=== PATIENT | female | born 1995 | race Hispanic/Latino ===

== ENCOUNTER 2020-06-04 15:29 | Inpatient (IN) | payer OTHER ==
[2020-06-04] MEDS ORDERED: MAGNESIUM SULFATE 4 GM/100 ML BAG IV ONE ×2 (17:22→19:57)
[2020-06-04] MEDS ORDERED: CALCIUM GLUCONATE 1000 MG/10 ML INJ IV ONE (17:22)
--- NOTE | 2020-06-04 17:22 | History and Physical Report ---
<JAYMIE HUNTER - Last Filed: 06/04/20 19:44> History of Present Illness Date of examination: 06/04/20 (Sent from [facility] d/t BP 200/100) Date of admission: 06/04/2020 Chief complaint: Blood pressure reading of 200/[address] [facility] office visit today. History of present illness: Pt sent from [facility] office d/t blood pressure reading during visit of 200/100. EDC Confirmation: 07/22/2020 Gestational Age: 8 3/7 weeks Past History : 1 Term Births: 0 Premature Births: 0 Living Children: 0 Para: 0 Mult. Births: 0 Prev : 0 Aborta: 0 Elect. Ab: 0 Spont. Ab: 0 Ectopics: 0 Past Medical History: Reviewed history and no changes required: Negative Past Medical History Past Surgical History: Reviewed history and no changes required: negative Past Medical History Anesthesia Complications: negative Anemia: negative Autoimmune Disorder: negative Bleeding Disorder: negative Blood Transfusions: negative Breast Disease: negative Diabetes: negative Heart Disease: negative Hypertension: negative Hepatitis/Liver Disease: negative Kidney Disease/UTI: negative Neurologic/Epilepsy/Migraines: negative Phlebitis/Varicosities: negative Psychiatric: negative Pulmonary Disease/Asthma: negative Thyroid Disease: negative Hospitalizations: negative Surgery (Non-backend developer): negative Abnormal PAP: negative HEIDI Exposure: negative Infertility: negative Uterine Anomaly: negative Uterine Surgery (not C/S): negative Other Gynecologic Problems: negative Family Hx: DM, HTN, Breast CA Infection History Hx of STD: none HIV Risk Eval: low risk Hepatitis B Risk Eval: low risk Personal hx. of genital herpes: no Partner hx. of genital herpes: no Rash, Viral, or Febrile illness since last LMP? no Varicella/Chicken Pox Status: Previous Disease TB Risk: no Genetic History Congenital Heart Defect: Mom: no Dad: no Mary Disease: Mom: no Dad: no Thalassemia Mom: no Dad: no Neural Tube Defect Mom: no Dad: no Down's Syndrome Mom: no Dad: no Jose-Sachs Mom: no Dad: no Sickle Cell Disease/Trait Mom: no Dad: no Hemophilia Mom: no Dad: no Muscular Dystrophy Mom: no Dad: no Cystic Fibrosis Mom: no Dad: no Jones Chorea Mom: no Dad: no Mental Retardation Mom: no Dad: no Fragile X Mom: no Dad: no Other Genetic/Chromosomal Disorder Mom: no Dad: no Child w/other defect Mom: no Dad: no Enviromental Exposures Xray Exposure: no Medication, drug, or alcohol use since LMP: no Chemical/Other Exposure: no Exposure to Cat Liter: yes Occupational Exposure to Children: none Active Medications (reviewed today): None Current Allergies (reviewed today): No known allergies Past History Past Medical History: no pertinent history Past Surgical History: no surgical history Family/Genetic History: diabetes, hypertension, cancer (Breast ) - Obstetrical History Expected Date of Delivery: 07/22/20 Actual Gestation: 33 Week(s) 1 Day(s) : 1 Para: 0 Hx # Term Pregnancies: 0 Number of Pregnancies: 0 Spontaneous Abortions: 0 Induced : 0 Number of Living Children: 0 Medications and Allergies Allergies Allergy/AdvReac Type Severity Reaction Status Date / Time No Known Allergies Allergy Verified 06/04/20 17:30 Home Medications Medication Instructions Recorded Confirmed Last Taken Type Vit-Fe Fumar-FA [ 1 tab PO DAILY 06/04/20 06/04/20 06/04/20 08:30 History Vitamin] - Physical Exam Breasts: Positive: deferred Cardiovascular: Regular rate Lungs: Positive: Normal air movement Abdomen: Positive: normal appearance, soft Genitourinary (Female): Positive: normal external genitalia, normal perenium Vulva: both: normal Vagina: Positive: normal moisture. Negative: discharge Cervix: Negative: lesion, discharge Uterus: Positive: normal size, normal contour Adnexa: both: normal Anus/Rectum: Positive: normal perianal skin, heme negative. Negative: rectal mass, hemorrhoids Extremities: Deep Tendon Reflex Grade: Normal +2 - Obstetrical FHR: auscultation normal, category 1 Uterine Contraction Monitor Mode: External Uterine Contraction Pattern: Irregular Uterine Tone Measurement Phase: Resting Uterine Contraction Intensity: Mild Results All other labs normal. GBS UNKNOWN HBsAg Screen Negative Negative *1 RPR Non Reactive Non Reactive *2 Rubella Antibodies, IgG 8.95 index Immune >0.99 *3 Non-immune <0.90 Equivocal 0.90 - 0.99 Immune >0.99 ABO Grouping O *4 Rh Factor Positive *5 Antibody Screen Negative Negative *6 Tests: (3) HB Solu + Rflx Fra (970205) Hemoglobin (Hgb) Solubility Negative Negative *32 Tests: (4) Toxoplasma gondii Ab, IgG ([id number]) ! Toxoplasma gondii Ab,IgG <3.0 IU/mL 0.0-7.1 *33 Negative <7.2 Equivocal 7.2 - 8.7 Positive >8.7 Tests: (5) HIV Ag/Ab with Reflex ([id number]) HIV Screen 4th Generation wRfx Non Reactive Non Reactive *34 Tests: (6) Toxoplasma gondii Ab,IgM ([id number]) ! Toxoplasma gondii Ab,IgM <3.0 AU/mL 0.0-7.9 *35 Negative <8.0 Equivocal 8.0 - 9.9 Positive >9.9 Tests: (7) Comment: ([id number]) ! Comment: [facility] *36 It is presumed the patient has not been infected with and is not undergoing an acute infection with Toxoplasma. If symptoms persist, submit a new specimen after three weeks. Tests: (8) HCV Ab w/Rflx to Verification ([id number]) ! HCV Ab <0.1 s/co ratio 0.0-0.9 *37 Tests: (9) Comment: ([id number]) ! Comment: [facility] *38 Non reactive HCV antibody screen is consistent with no HCV infection, unless recent infection is suspected or other evidence exists to indicate HCV infection. Assessment and Plan - Patient Problems (1) Gestational diabetes mellitus (GDM) Current Visit: Yes Status: Acute Qualifiers: Gestational diabetes mellitus control: diet-controlled Trimester: third trimester Qualified Code(s): O24.410 - Gestational diabetes mellitus in , diet controlled (2) 33 weeks gestation of Current Visit: Yes Status: Acute (3) Pre-eclampsia, severe, third trimester Onset Date: ~06/04/20 Current Visit: Yes Status: Acute <MICHAEL PADILLA D - Last Filed: 06/04/20 21:33> Medications and Allergies Active Meds: Active Medications Acetaminophen (Acetaminophen 325 Mg Tab) 1,000 mg PO Q6H PRN PRN Reason: Pain MILD(1-3)/Fever >100.5/ESCOBAR Al Hydrox/Mg Hydrox/Simethicone (Alum-Mag Hydroxide-Simethicone [phone]/5ml Oral Liqd 30 Ml) 30 ml PO Q6H PRN PRN Reason: Indigestion Betamethasone Acet/Betameth SodPhos (Betamet Acet/Betamet Na Ph 6 Mg/Ml Inj 5 Ml Mdv) 12 mg IM Q24H ALPHONSO Stop: 06/05/20 18:01 Last Admin: 06/04/20 18:10 Dose: 12 mg Documented by: Dextrose (Dextrose 50% In Water (25gm) 50 Ml Syringe) 50 ml IV Q30MIN PRN; Protocol PRN Reason: Hypoglycemia Diphenhydramine HCl (Diphenhydramine 25 Mg Cap) 25 mg PO Q6H PRN PRN Reason: Itching Docusate Sodium (Docusate Sodium 100 Mg Cap) 100 mg PO Q12H PRN PRN Reason: Constipation Hydralazine HCl (Hydralazine 20 Mg/1 Ml Inj) 10 mg IV Q30MIN PRN PRN Reason: Hypertension Lactated Ringer's (Lactated Ringers) 1,000 mls @ 125 mls/hr IV DIRECT ALPHONSO Last Admin: 06/04/20 18:41 Dose: 125 mls/hr Documented by: Magnesium Sulfate (Magnesium Sulfate 40gm/1000ml) 40 gm in 1,000 mls @ 50 mls/hr IV DIRECT ALPHONSO Insulin Human Regular (Insulin Regular, Human 100 Units/1 Ml) 0 units SUB-Q Q6H ALPHONSO; Protocol Labetalol HCl (Labetalol 200 Mg Tab) 300 mg PO BID [facility] Last Admin: 06/04/20 18:08 Dose: 300 mg Documented by: Multivitamins/Iron/Calcium ( [id number]-Pp Fumarate-Folic Acid Vit Tab) 1 each PO QDAY [facility] Ondansetron HCl (Ondansetron 4 Mg/2 Ml Inj) 4 mg IV Q6H PRN PRN Reason: Nausea And Vomiting Review of Systems All systems: negative - Vital Signs Vital signs: Vital Signs Pulse BP 86 174/104 06/04/20 17:29 06/04/20 17:29 Temp Pulse Resp BP Pulse Ox 98.4 F 92 H 20 127/71 96 06/04/20 17:31 06/04/20 20:42 06/04/20 17:31 06/04/20 20:40 06/04/20 20:42 - Physical Exam Lungs: Positive: Clear to auscultation Abdomen: Negative: tenderness Extremities: Positive: edema (2+) Deep Tendon Reflex Grade: Normal but brisk +3 Results Result Diagrams: 06/04/20 18:30 06/04/20 18:30 Abnormal lab results 06/04/20 06/04/20 Range/Units 18:30 18:30 WBC 17.4 H (4.5-11.0) K/mm3 RDW 13.0 L (13.2-15.2) % Calcium 8.0 L (8.4-10.2) mg/dL AST 57 H (5-40) units/L Alkaline Phosphatase 170 H (35-129) units/L Total Protein 6.0 L (6.3-8.2) g/dL Albumin 3.0 L (3.9-5) g/dL All other labs normal. Assessment and Plan Per [facility]: * Steroids * Magnesium sulfate * PIH labs: AST 57, other labs normal, will recheck in the AM * Continuous EFM Labetalol 300mg bid started SSI ordered. NICU and AMFM consultations ordered - Patient Problems (1) 33 weeks gestation of Current Visit: Yes Status: Acute (2) Gestational diabetes mellitus (GDM) Current Visit: Yes Status: Acute Qualifiers: Gestational diabetes mellitus control: diet-controlled Trimester: third trimester Qualified Code(s): O24.410 - Gestational diabetes mellitus in , diet controlled (3) Pre-eclampsia, severe, third trimester Onset Date: ~06/04/20 Current Visit: Yes Status: Acute
[2020-06-04] MEDS ORDERED: ALUM-MAG HYDROXIDE-SIMETHICONE 200-200-20MG/5ML ORAL LIQD 30 ML PO PRN (17:27)
[2020-06-04] MEDS ORDERED: diphenhydrAMINE 25 MG CAP PO PRN (17:27)
[2020-06-04] MEDS ORDERED: ACETAMINOPHEN 325 MG TAB PO PRN (17:27)
[2020-06-04] MEDS ORDERED: DOCUSATE SODIUM 100 MG CAP PO PRN (17:27)
[2020-06-04] MEDS ORDERED: ONDANSETRON 4 MG/2 ML INJ IV PRN (17:27)
[2020-06-04] MEDS ORDERED: hydrALAZINE 20 MG/1 ML INJ IV ONE (17:35)
[2020-06-04] MEDS ORDERED: MAGNESIUM SULFATE 40GM/1000ML 40 GM/1,000 ML BAG IV SCH (18:00)
[2020-06-04] MEDS: BETAMET ACET/BETAMET NA PH 6 MG/ML INJ 5 ML MDV IM SCH (18:10)
[2020-06-04] MEDS: LACTATED RINGERS 1,000 ML IV SCH (18:41)
[2020-06-04 19:51] LABS: Alanine Aminotransferase 41 units/L (7-56); Blood Urea Nitrogen 14 mg/dL (7-17); Hematocrit 36.2 % (30.3-42.9); Hemoglobin 12.3 gm/dl (10.1-14.3); Hemolysis Index 8; Mean Corpuscular HGB Conc 34 % (30-34); Mean Corpuscular Volume 88 fl (79-97); Platelet Count 149 K/mm3 (140-440)
[2020-06-04 19:55] LABS: BUN/Creatinine Ratio 23
[2020-06-04] MEDS ORDERED: DEXTROSE 50% IN WATER (25GM) 50 ML SYRINGE IV PRN (20:33)
[2020-06-04] MEDS ORDERED: INSULIN REGULAR, HUMAN 100 UNITS/1 ML SUB-Q SCH (21:00)
--- NOTE | 2020-06-04 21:25 | Consultation ---
Consult Note - Parent Education I met with parent(s) and discussed the following:: Need for NICU admission, Poss ible need for intubation and surfactant or other resp support, Temperature regulation, Possible need for IV fluids/TPN and IV antibiotics, Possible need for umbilical lines, Importance of providing breast milk & encouraged pumping aft delivery, Slow feeding advancement and monitoring of tolerance. NG/OG feeds, Need to monitor for jaundice Parent(s) demonstrated understanding of all the information:: Yes Additional Comment: Both parents at bedside, all questions answered and verbalized understanding Assessment and Plan - Assessment Gestation:: 33 Baby's gender: Male Additional Comment: 25 yo mother who presented with elevated BP at [facility]. HIV neg, Hep B neg, rubella immune, toxo IgG and IgM negative, RPR NR, GDM. - Plan Plan: Agree with Mag & steroids Will attend delivery Please call NICU with questions
[2020-06-04 22:52] LABS: Bilirubin,Urine NEG (Negative); Blood,Urine NEG (Negative); Color,Urine Yellow (Yellow); Mucus,Urine FEW /HPF; Protein,Urine >500 mg/dL (Negative); RBC,Urine < 1.0 /HPF (0.0-6.0); Urobilinogen,Urine < 2.0 mg/dL (<2.0)
[2020-06-04 22:56] LABS: Amphetamine Screen,Urine PRESUMPTIVE NEGATIVE; Benzodiazepines Screen,Urine PRESUMPTIVE NEGATIVE; Cannabinoid Screen,Urine PRESUMPTIVE NEGATIVE; Cocaine Screen,Urine PRESUMPTIVE NEGATIVE; Methadone Screen,Urine PRESUMPTIVE NEGATIVE; Opiate Screen,Urine PRESUMPTIVE NEGATIVE
--- NOTE | 2020-06-05 07:18 | Progress Note ---
Assessment and Plan Per [facility]: * Steroids (second dose due today @ 1810) * Magnesium sulfate 2g/hr w/mag level q6hr * PIH labs: AST 57, other labs normal, will recheck in this AM * 24h urine in progress * Continuous EFM Labetalol 300mg bid SSI ordered. AMFM consultations ordered NICU consult completed - Patient Problems (1) 33 weeks gestation of Current Visit: Yes Status: Acute (2) Gestational diabetes mellitus (GDM) Current Visit: Yes Status: Acute Qualifiers: Gestational diabetes mellitus control: diet-controlled Trimester: third trimester Qualified Code(s): O24.410 - Gestational diabetes mellitus in , diet controlled (3) Pre-eclampsia, severe, third trimester Onset Date: ~06/04/20 Current Visit: Yes Status: Acute Subjective - Subjective Date of service: 06/05/20 Principal diagnosis: IUP @ 33+3; severe pre-e Patient reports: movement normal, no new complaints (denies ESCOBAR, visual changes or epigastric pain), no loss of fluid, no vaginal bleeding, no contractions Objective - Vital Signs Vital Signs: Vital Signs - 12hr 06/04/20 06/04/20 06/04/20 19:18 19:23 19:28 Temperature Pulse Rate 92 H 87 91 H Respiratory Rate Blood Pressure 143/87 O2 Sat by Pulse 97 97 97 Oximetry 06/04/20 06/04/20 06/04/20 19:52 19:57 19:58 Temperature Pulse Rate 95 H 92 H 94 H Respiratory Rate Blood Pressure O2 Sat by Pulse 96 96 94 Oximetry 06/04/20 06/04/20 06/04/20 20:00 20:02 20:06 Temperature 98.4 F Pulse Rate 95 H 90 Respiratory Rate Blood Pressure O2 Sat by Pulse 94 94 Oximetry 06/04/20 06/04/20 06/04/20 20:07 20:12 20:16 Temperature Pulse Rate 92 H 90 91 H Respiratory Rate Blood Pressure 141/83 O2 Sat by Pulse 94 97 Oximetry 06/04/20 06/04/20 06/04/20 20:17 20:20 20:22 Temperature Pulse Rate 95 H 90 96 H Respiratory Rate Blood Pressure 138/82 O2 Sat by Pulse 96 96 Oximetry 06/04/20 06/04/20 06/04/20 20:25 20:27 20:30 Temperature Pulse Rate 99 H 102 H 90 Respiratory 18 Rate Blood Pressure 151/82 134/76 O2 Sat by Pulse 96 98 Oximetry 06/04/20 06/04/20 06/04/20 20:32 20:35 20:37 Temperature Pulse Rate 93 H 86 89 Respiratory Rate Blood Pressure 128/71 O2 Sat by Pulse 96 96 Oximetry 06/04/20 06/04/20 06/04/20 20:40 20:42 20:45 Temperature Pulse Rate 87 92 H 87 Respiratory Rate Blood Pressure 127/71 126/70 O2 Sat by Pulse 96 Oximetry 06/04/20 06/04/20 06/04/20 20:47 20:51 20:52 Temperature Pulse Rate 94 H 90 97 H Respiratory Rate Blood Pressure 143/84 O2 Sat by Pulse 96 96 Oximetry 06/04/20 06/04/20 06/04/20 20:55 20:57 21:00 Temperature Pulse Rate 91 H 97 H 90 Respiratory Rate Blood Pressure 138/82 139/82 O2 Sat by Pulse 96 Oximetry 06/04/20 06/04/20 06/04/20 21:02 21:07 21:12 Temperature Pulse Rate 91 H 92 H 104 H Respiratory Rate Blood Pressure 128/77 O2 Sat by Pulse 96 96 96 Oximetry 06/04/20 06/04/20 06/04/20 21:17 21:22 21:27 Temperature Pulse Rate 92 H 90 93 H Respiratory Rate Blood Pressure O2 Sat by Pulse 96 96 96 Oximetry 06/04/20 06/04/20 06/04/20 21:30 21:32 21:37 Temperature Pulse Rate 92 H 94 H Respiratory 18 Rate Blood Pressure O2 Sat by Pulse 97 96 96 Oximetry 06/04/20 06/04/20 06/04/20 21:42 21:47 21:52 Temperature Pulse Rate 94 H 93 H 97 H Respiratory Rate Blood Pressure O2 Sat by Pulse 96 96 96 Oximetry 06/04/20 06/04/20 06/04/20 21:57 22:02 22:07 Temperature Pulse Rate 93 H 90 88 Respiratory Rate Blood Pressure O2 Sat by Pulse 96 96 96 Oximetry 06/04/20 06/04/20 06/04/20 22:09 22:12 22:17 Temperature Pulse Rate 79 91 H 76 Respiratory Rate Blood Pressure 118/68 O2 Sat by Pulse 96 96 Oximetry 06/04/20 06/04/20 06/04/20 22:22 22:25 22:27 Temperature Pulse Rate 79 81 Respiratory 18 Rate Blood Pressure O2 Sat by Pulse 96 98 96 Oximetry 06/04/20 06/04/20 06/04/20 22:32 22:37 22:42 Temperature Pulse Rate 80 87 76 Respiratory Rate Blood Pressure O2 Sat by Pulse 95 96 96 Oximetry 06/04/20 06/04/20 06/04/20 22:47 22:52 22:57 Temperature Pulse Rate 83 83 83 Respiratory Rate Blood Pressure O2 Sat by Pulse 96 96 96 Oximetry 06/04/20 06/04/20 06/04/20 23:02 23:07 23:10 Temperature Pulse Rate 84 81 77 Respiratory Rate Blood Pressure 116/68 O2 Sat by Pulse 96 96 Oximetry 06/04/20 06/04/20 06/04/20 23:12 23:17 23:22 Temperature Pulse Rate 79 78 85 Respiratory 20 Rate Blood Pressure O2 Sat by Pulse 96 96 96 Oximetry 06/04/20 06/04/20 06/04/20 23:27 23:32 23:37 Temperature Pulse Rate 78 78 79 Respiratory Rate Blood Pressure O2 Sat by Pulse 96 95 96 Oximetry 06/04/20 06/04/20 06/04/20 23:42 23:47 23:52 Temperature Pulse Rate 81 79 77 Respiratory Rate Blood Pressure O2 Sat by Pulse 96 96 96 Oximetry 06/04/20 06/05/20 06/05/20 23:57 00:02 00:07 Temperature Pulse Rate 81 77 76 Respiratory Rate Blood Pressure O2 Sat by Pulse 96 95 95 Oximetry 06/05/20 06/05/20 06/05/20 00:11 00:12 00:17 Temperature Pulse Rate 83 89 83 Respiratory Rate Blood Pressure 127/77 O2 Sat by Pulse 96 96 Oximetry 06/05/20 06/05/20 06/05/20 00:22 00:27 00:30 Temperature 98.5 F Pulse Rate 79 77 Respiratory 18 Rate Blood Pressure O2 Sat by Pulse 97 97 97 Oximetry 06/05/20 06/05/20 06/05/20 00:32 00:37 00:42 Temperature Pulse Rate 76 74 76 Respiratory Rate Blood Pressure O2 Sat by Pulse 97 96 96 Oximetry 06/05/20 06/05/20 06/05/20 00:47 00:52 00:57 Temperature Pulse Rate 77 76 80 Respiratory Rate Blood Pressure O2 Sat by Pulse 96 96 96 Oximetry 06/05/20 06/05/20 06/05/20 01:02 01:07 01:09 Temperature Pulse Rate 87 75 73 Respiratory Rate Blood Pressure 120/76 O2 Sat by Pulse 97 96 Oximetry 06/05/20 06/05/20 06/05/20 01:12 01:17 01:22 Temperature Pulse Rate 73 75 84 Respiratory Rate Blood Pressure O2 Sat by Pulse 97 97 97 Oximetry 06/05/20 06/05/20 06/05/20 01:27 01:32 01:35 Temperature Pulse Rate 75 78 Respiratory 20 Rate Blood Pressure O2 Sat by Pulse 97 97 97 Oximetry 06/05/20 06/05/20 06/05/20 01:37 01:42 01:47 Temperature Pulse Rate 75 73 76 Respiratory Rate Blood Pressure O2 Sat by Pulse 97 97 96 Oximetry 06/05/20 06/05/20 06/05/20 01:52 01:57 02:02 Temperature Pulse Rate 72 75 77 Respiratory Rate Blood Pressure O2 Sat by Pulse 96 96 96 Oximetry 06/05/20 06/05/20 06/05/20 02:07 02:09 02:12 Temperature Pulse Rate 76 76 73 Respiratory Rate Blood Pressure 117/73 O2 Sat by Pulse 96 96 Oximetry 06/05/20 06/05/20 06/05/20 02:17 02:22 02:25 Temperature Pulse Rate 77 74 Respiratory 20 Rate Blood Pressure O2 Sat by Pulse 96 96 98 Oximetry 06/05/20 06/05/20 06/05/20 02:27 02:32 02:37 Temperature Pulse Rate 73 75 78 Respiratory Rate Blood Pressure O2 Sat by Pulse 96 96 96 Oximetry 06/05/20 06/05/20 06/05/20 02:42 02:47 02:52 Temperature Pulse Rate 90 72 73 Respiratory Rate Blood Pressure O2 Sat by Pulse 96 96 96 Oximetry 06/05/20 06/05/20 06/05/20 02:57 03:02 03:07 Temperature Pulse Rate 73 75 78 Respiratory Rate Blood Pressure O2 Sat by Pulse 96 96 95 Oximetry 06/05/20 06/05/20 06/05/20 03:10 03:12 03:17 Temperature Pulse Rate 95 H 72 73 Respiratory Rate Blood Pressure 128/73 O2 Sat by Pulse 97 96 Oximetry 06/05/20 06/05/2021 03:22 03:27 03:30 Temperature Pulse Rate 75 71 Respiratory 18 Rate Blood Pressure O2 Sat by Pulse 95 96 97 Oximetry 06/05/20 06/05/20 06/05/20 03:32 03:37 03:42 Temperature Pulse Rate 71 73 74 Respiratory Rate Blood Pressure O2 Sat by Pulse 96 96 95 Oximetry 06/05/20 06/05/20 06/05/20 03:47 03:52 03:57 Temperature Pulse Rate 78 72 73 Respiratory Rate Blood Pressure O2 Sat by Pulse 96 96 96 Oximetry 06/05/20 06/05/20 06/05/20 04:02 04:07 04:11 Temperature Pulse Rate 73 74 77 Respiratory Rate Blood Pressure 125/73 O2 Sat by Pulse 96 96 Oximetry 06/05/20 06/05/20 06/05/20 04:12 04:17 04:22 Temperature Pulse Rate 70 73 70 Respiratory Rate Blood Pressure O2 Sat by Pulse 96 96 96 Oximetry 06/05/20 06/05/20 06/05/20 04:27 04:32 04:37 Temperature Pulse Rate 72 72 72 Respiratory Rate Blood Pressure O2 Sat by Pulse 96 96 96 Oximetry 06/05/20 06/05/20 06/05/20 04:40 04:42 04:47 Temperature Pulse Rate 72 70 Respiratory 18 Rate Blood Pressure O2 Sat by Pulse 97 96 96 Oximetry 06/05/20 06/05/20 06/05/20 04:52 04:57 05:02 Temperature Pulse Rate 71 74 79 Respiratory Rate Blood Pressure O2 Sat by Pulse 96 96 96 Oximetry 06/05/20 06/05/20 06/05/20 05:03 05:07 05:10 Temperature Pulse Rate 81 79 95 H Respiratory Rate Blood Pressure 127/72 O2 Sat by Pulse 94 95 Oximetry 06/05/20 06/05/20 06/05/20 05:12 05:17 05:22 Temperature Pulse Rate 77 85 74 Respiratory Rate Blood Pressure O2 Sat by Pulse 97 96 96 Oximetry 06/05/20 06/05/20 06/05/20 05:27 05:30 05:32 Temperature Pulse Rate 82 73 Respiratory 18 Rate Blood Pressure O2 Sat by Pulse 97 96 97 Oximetry 06/05/20 06/05/20 06/05/20 05:37 05:42 05:47 Temperature Pulse Rate 75 85 85 Respiratory Rate Blood Pressure O2 Sat by Pulse 97 97 97 Oximetry 06/05/20 06/05/20 06/05/20 05:52 05:57 06:02 Temperature Pulse Rate 76 76 81 Respiratory Rate Blood Pressure O2 Sat by Pulse 97 97 98 Oximetry 06/05/20 06/05/20 06/05/20 06:07 06:09 06:12 Temperature Pulse Rate 82 75 76 Respiratory Rate Blood Pressure 124/75 O2 Sat by Pulse 97 97 Oximetry 06/05/20 06/05/20 06/05/20 06:17 06:22 06:27 Temperature Pulse Rate 78 80 77 Respiratory Rate Blood Pressure O2 Sat by Pulse 97 98 97 Oximetry 06/05/20 06/05/20 06/05/20 06:32 06:37 06:42 Temperature Pulse Rate 80 80 77 Respiratory Rate Blood Pressure O2 Sat by Pulse 98 97 97 Oximetry 06/05/20 06/05/20 06/05/20 06:45 06:47 06:52 Temperature Pulse Rate 78 83 Respiratory 18 Rate Blood Pressure O2 Sat by Pulse 96 96 97 Oximetry 06/05/20 06/05/20 06/05/20 06:54 06:57 07:02 Temperature 98.0 F Pulse Rate 90 86 Respiratory Rate Blood Pressure O2 Sat by Pulse 97 97 Oximetry 06/05/20 06/05/20 06/05/20 07:07 07:09 07:12 Temperature Pulse Rate 89 77 79 Respiratory Rate Blood Pressure 131/80 O2 Sat by Pulse 97 98 Oximetry - Exam Breasts: normal Cardiovascular: Regular rate Lungs: Normal air movement Abdomen: Present: normal appearance, soft Uterus: Present: normal, fundal height above umbilicus FHR: category 1 Uterine Contraction Monitor Mode: External Uterine Contraction Pattern: Absent Uterine Tone Measurement Phase: Resting Extremities: edema (1+ non pitting) Deep Tendon Reflex Grade: Normal +2 - Labs Labs: Abnormal Labs 06/04/20 06/04/20 06/05/20 18:30 18:30 00:59 WBC 17.4 H RDW 13.0 L Calcium 8.0 L Magnesium 5.90 H AST 57 H Alkaline Phosphatase 170 H Total Protein 6.0 L Albumin 3.0 L Laboratory Results - last 24 hr 06/04/20 06/04/20 06/04/20 18:30 18:30 18:30 WBC 17.4 H RBC 4.10 Hgb 12.3 Hct 36.2 MCV 88 MCH 30 MCHC 34 RDW 13.0 L Plt Count 149 Sodium 139 Potassium 3.9 Chloride 105.4 Carbon Dioxide 23 Anion Gap 15 BUN 14 Creatinine 0.6 Estimated GFR > 60 BUN/Creatinine Ratio 23 Glucose 72 POC Glucose Uric Acid 7.0 Calcium 8.0 L Magnesium 1.70 Total Bilirubin 0.30 AST 57 H ALT 41 Alkaline Phosphatase 170 H Total Protein 6.0 L Albumin 3.0 L Albumin/Globulin Ratio 1.0 Urine Color Urine Turbidity Urine pH Ur Specific [place] Urine Protein Urine Glucose (UA) Urine Ketones Urine Blood Urine Nitrite Urine Bilirubin Urine Urobilinogen Ur Leukocyte Esterase Urine WBC (Auto) Urine RBC (Auto) U Epithel Cells (Auto) Urine Mucus Urine Opiates Screen Urine Methadone Screen Ur Barbiturates Screen Ur Phencyclidine Scrn Ur Amphetamines Screen U Benzodiazepines Scrn Urine Cocaine Screen U Marijuana (THC) Screen Drugs of Abuse Note Syphilis IgG Antibody Blood Type Antibody Screen 06/04/20 06/04/20 06/04/20 18:30 18:30 21:19 WBC RBC Hgb Hct MCV MCH MCHC RDW Plt Count Sodium Potassium Chloride Carbon Dioxide Anion Gap BUN Creatinine Estimated GFR BUN/Creatinine Ratio Glucose POC Glucose 92 Uric Acid Calcium Magnesium Total Bilirubin AST ALT Alkaline Phosphatase Total Protein Albumin Albumin/Globulin Ratio Urine Color Urine Turbidity Urine pH Ur Specific [place] Urine Protein Urine Glucose (UA) Urine Ketones Urine Blood Urine Nitrite Urine Bilirubin Urine Urobilinogen Ur Leukocyte Esterase Urine WBC (Auto) Urine RBC (Auto) U Epithel Cells (Auto) Urine Mucus Urine Opiates Screen Urine Methadone Screen Ur Barbiturates Screen Ur Phencyclidine Scrn Ur Amphetamines Screen U Benzodiazepines Scrn Urine Cocaine Screen U Marijuana (THC) Screen Drugs of Abuse Note Syphilis IgG Antibody Nonreactive Blood Type O POSITIVE Antibody Screen Negative 06/04/20 06/04/20 06/05/20 22:00 22:00 00:59 WBC RBC Hgb Hct MCV MCH MCHC RDW Plt Count Sodium Potassium Chloride Carbon Dioxide Anion Gap BUN Creatinine Estimated GFR BUN/Creatinine Ratio Glucose POC Glucose Uric Acid Calcium Magnesium 5.90 H Total Bilirubin AST ALT Alkaline Phosphatase Total Protein Albumin Albumin/Globulin Ratio Urine Color Yellow Urine Turbidity Slightly-cloudy Urine pH 6.0 Ur Specific [place] 1.015 Urine Protein >500 Urine Glucose (UA) Neg Urine Ketones Neg Urine Blood Neg Urine Nitrite Neg Urine Bilirubin Neg Urine Urobilinogen < 2.0 Ur Leukocyte Esterase Neg Urine WBC (Auto) 3.0 Urine RBC (Auto) < 1.0 U Epithel Cells (Auto) < 1.0 Urine Mucus Few Urine Opiates Screen Presumptive negative Urine Methadone Screen Presumptive negative Ur Barbiturates Screen Presumptive negative Ur Phencyclidine Scrn Presumptive negative Ur Amphetamines Screen Presumptive negative U Benzodiazepines Scrn Presumptive negative Urine Cocaine Screen Presumptive negative U Marijuana (THC) Screen Presumptive negative Drugs of Abuse Note Disclamer Syphilis IgG Antibody Blood Type Antibody Screen
[2020-06-05 08:52] LABS: Hematocrit 37.7 % (30.3-42.9); Hemoglobin 12.6 gm/dl (10.1-14.3); Mean Corpuscular HGB Conc 34 % (30-34); Mean Corpuscular Volume 89 fl (79-97); Platelet Count 138 K/mm3 (140-440); Red Blood Count 4.24 M/mm3 (3.65-5.03); Red Cell Distribution Width 13.3 % (13.2-15.2)
[2020-06-05] MEDS: PRENATAL VIT27-FE FUMARATE-FOLIC ACID VIT TAB PO SCH (09:04)
[2020-06-05 09:24] LABS: Alanine Aminotransferase 46 units/L (7-56); Uric Acid 7.8 mg/dL (3.5-7.6)
--- NOTE | 2020-06-05 11:25 | Ultrasound Report ---
ULTRASOUND OBSTETRIC INDICATION / CLINICAL INFORMATION: evaluate for IUGR. Clinical Gestational Age (GA): TECHNIQUE: Transabdominal. COMPARISON: 12/24/2019 FINDINGS: There is a single intrauterine . Biparietal Diameter = 8.2 cm = 32 weeks, 6 day(s). Head Circumference = 29.8 cm = 33 weeks, 0 day(s). Abdominal Circumference = 28.5 cm = 32 weeks, 4 day(s). Femur Length = 5.8 cm = 30 weeks, 2 day(s). Average Ultrasound Age (AUA) = 32 weeks, 1 day(s). Heart Rate: 121 beats per minute. Estimated Weight in grams (if calculated): 1865 g Estimated Weight Growth Percentile (if calculated): Amniotic Fluid Volume: normal Amniotic Fluid Index (RUY) in cm (if calculated): 9.8. Maternal Adnexa: No significant abnormality. IMPRESSION: 1. Single, living intrauterine with estimated sonographic age of 32 weeks, 1 day(s), this lags clinical dates by 1 week. Signer Name: Mumtaz Wisdom MD Signed: 06/05/2020 11:20 AM Workstation Name: [id number]
[2020-06-05] MEDS ORDERED: MAGNESIUM SULFATE 40GM/1000ML 40 GM/1,000 ML BAG IV SCH (14:00)
--- NOTE | 2020-06-05 18:12 | Consultation ---
Past History Past Medical History: no pertinent history Past Surgical History: no surgical history Family/Genetic History: diabetes, hypertension, cancer (Breast ) - Obstetrical History : 1 Medications and Allergies Allergies Allergy/AdvReac Type Severity Reaction Status Date / Time No Known Allergies Allergy Verified 06/04/20 17:30 Home Medications Medication Instructions Recorded Confirmed Last Taken Type Vit-Fe Fumar-FA [ 1 tab PO DAILY 06/04/20 06/04/20 06/04/20 08:30 History Vitamin] Active Meds: Active Medications Acetaminophen (Acetaminophen 325 Mg Tab) 1,000 mg PO Q6H PRN PRN Reason: Pain MILD(1-3)/Fever >100.5/ESCOBAR Al Hydrox/Mg Hydrox/Simethicone (Alum-Mag Hydroxide-Simethicone [id number]/5ml Oral Liqd 30 Ml) 30 ml PO Q6H PRN PRN Reason: Indigestion Dextrose (Dextrose 50% In Water (25gm) 50 Ml Syringe) 50 ml IV Q30MIN PRN; Protocol PRN Reason: Hypoglycemia Diphenhydramine HCl (Diphenhydramine 25 Mg Cap) 25 mg PO Q6H PRN PRN Reason: Itching Docusate Sodium (Docusate Sodium 100 Mg Cap) 100 mg PO Q12H PRN PRN Reason: Constipation Hydralazine HCl (Hydralazine 20 Mg/1 Ml Inj) 10 mg IV Q30MIN PRN PRN Reason: Hypertension Lactated Ringer's (Lactated Ringers) 1,000 mls @ 125 mls/hr IV DIRECT ALPHONSO Last Admin: 06/04/20 18:41 Dose: 125 mls/hr Documented by: Magnesium Sulfate (Magnesium Sulfate 40gm/1000ml) 40 gm in 1,000 mls @ 25 mls/hr IV DIRECT ALPHONSO Insulin Human Regular (Insulin Regular, Human 100 Units/1 Ml) 0 units SUB-Q Q6H ALPHONSO; Protocol Labetalol HCl (Labetalol 200 Mg Tab) 200 mg PO Q12H ALPHONSO Last Admin: 06/05/20 09:04 Dose: 200 mg Documented by: Labetalol HCl (Labetalol 100 Mg Tab) 100 mg PO Q12H ALPHONSO Last Admin: 06/05/20 09:03 Dose: 100 mg Documented by: Multivitamins/Iron/Calcium ( [id number] Fumarate-Folic Acid Vit Tab) 1 each PO QDAY ALPHONSO Last Admin: 06/05/20 09:04 Dose: 1 each Documented by: Ondansetron HCl (Ondansetron 4 Mg/2 Ml Inj) 4 mg IV Q6H PRN PRN Reason: Nausea And Vomiting - Vital Signs Vital signs: Vital Signs Pulse BP 86 174/104 06/04/20 17:29 06/04/20 17:29 Temp Pulse Resp BP Pulse Ox 97.8 F 75 16 125/80 97 06/05/20 15:11 06/05/20 18:09 06/05/20 08:41 06/05/20 18:09 06/05/20 18:06 Results Result Diagrams: 06/05/20 07:44 06/05/20 07:44 Abnormal lab results 06/04/20 06/04/20 06/05/20 Range/Units 18:30 18:30 00:59 WBC 17.4 H (4.5-11.0) K/mm3 RDW 13.0 L (13.2-15.2) % Plt Count (140-440) K/mm3 POC Glucose (70-105) mg/dL Uric Acid (3.5-7.6) mg/dL Calcium 8.0 L (8.4-10.2) mg/dL Magnesium 5.90 H (1.7-2.3) mg/dL AST 57 H (5-40) units/L Alkaline Phosphatase 170 H (35-129) units/L Lactate Dehydrogenase (91-180) units/L Total Protein 6.0 L (6.3-8.2) g/dL Albumin 3.0 L (3.9-5) g/dL 06/05/20 06/05/20 06/05/20 Range/Units 06:58 07:44 07:44 WBC 14.6 H (4.5-11.0) K/mm3 RDW (13.2-15.2) % Plt Count 138 L (140-440) K/mm3 POC Glucose 113 H (70-105) mg/dL Uric Acid 7.8 H (3.5-7.6) mg/dL Calcium (8.4-10.2) mg/dL Magnesium 7.30 H (1.7-2.3) mg/dL AST 49 H (5-40) units/L Alkaline Phosphatase (35-129) units/L Lactate Dehydrogenase 289 H (91-180) units/L Total Protein (6.3-8.2) g/dL Albumin (3.9-5) g/dL 06/05/20 Range/Units 12:19 WBC (4.5-11.0) K/mm3 RDW (13.2-15.2) % Plt Count (140-440) K/mm3 POC Glucose (70-105) mg/dL Uric Acid (3.5-7.6) mg/dL Calcium (8.4-10.2) mg/dL Magnesium 7.00 H (1.7-2.3) mg/dL AST (5-40) units/L Alkaline Phosphatase (35-129) units/L Lactate Dehydrogenase (91-180) units/L Total Protein (6.3-8.2) g/dL Albumin (3.9-5) g/dL All other labs normal. Assessment and Plan [facility] Consult performed Will fax to unit
[2020-06-05] MEDS: BETAMET ACET/BETAMET NA PH 6 MG/ML INJ 5 ML MDV IM SCH (18:16)
[2020-06-05 23:17] LABS: Creatinine,Urine 21.3 mg/dL (0.1-20.0); Creatinine,Urine 21.4 mg/dL (0.1-20.0)
[2020-06-06] MEDS: LACTATED RINGERS 1,000 ML IV SCH ×2 (04:24→13:45)
--- NOTE | 2020-06-06 05:53 | Progress Note ---
Assessment and Plan Pt in good spirits this AM. Denies any s/sx of worsening PreE. Will consult with Dr Geronimo. [facility] recommendations: BMZ completed X 2 doses. cont. Labetalol 300mg BID CBC/CMP today monitor for HELLP BPP twice weekly; ordered for 06/07/20 Cont. BS fasting and 2hrPP; SSI if indicated D/C MGSO4 if stable BPs Delivery @ 34w unless worsening s/sx - Patient Problems (1) 33 weeks gestation of Onset Date: ~06/06/20 Current Visit: Yes Status: Acute Plan to address problem: BMZ completed 06-05-20@ 1800 X 2 doses BPP/RUY ordered for 06/07/20 (2) Gestational diabetes mellitus (GDM) Onset Date: ~06/06/20 Current Visit: Yes Status: Acute Qualifiers: Gestational diabetes mellitus control: diet-controlled Trimester: third trimester Qualified Code(s): O24.410 - Gestational diabetes mellitus in , diet controlled Plan to address problem: fasting and 2hr PP BS; SSI to cover; anticipate elevated BS due to steroids (3) Pre-eclampsia, severe, third trimester Onset Date: ~06/06/20 Current Visit: Yes Status: Acute Plan to address problem: CBC/CMP ordered for today to monitor for worsening s/sx of PreE/HELLP Subjective - Subjective Date of service: 06/06/20 (No c/o voiced) Principal diagnosis: IUP @ 33w3d; severe pre-e; GDM diet controlled Patient reports: movement normal, no new complaints (denies ESCOBAR, visual changes or epigastric pain), no loss of fluid, no vaginal bleeding, no contractions Objective - Vital Signs Vital Signs: Vital Signs - 12hr 06/05/20 06/05/20 06/05/20 17:57 18:02 18:06 Temperature Pulse Rate 81 83 87 Respiratory Rate Blood Pressure Blood Pressure [Left] O2 Sat by Pulse 96 96 97 Oximetry 06/05/20 06/05/20 06/05/20 18:09 18:12 18:17 Temperature Pulse Rate 75 77 84 Respiratory Rate Blood Pressure 125/80 Blood Pressure [Left] O2 Sat by Pulse 96 96 Oximetry 06/05/20 06/05/20 06/05/20 18:21 18:26 18:31 Temperature Pulse Rate 73 77 81 Respiratory Rate Blood Pressure Blood Pressure [Left] O2 Sat by Pulse 96 97 97 Oximetry 06/05/20 06/05/20 06/05/20 18:37 18:41 18:46 Temperature Pulse Rate 81 80 82 Respiratory Rate Blood Pressure Blood Pressure [Left] O2 Sat by Pulse 97 97 96 Oximetry 06/05/20 06/05/20 06/05/20 18:51 18:56 19:01 Temperature Pulse Rate 76 79 79 Respiratory Rate Blood Pressure Blood Pressure [Left] O2 Sat by Pulse 97 97 97 Oximetry 06/05/20 06/05/20 06/05/20 19:07 19:09 19:12 Temperature Pulse Rate 81 83 84 Respiratory Rate Blood Pressure 138/77 Blood Pressure [Left] O2 Sat by Pulse 96 97 Oximetry 06/05/20 06/05/20 06/05/20 19:16 19:21 19:26 Temperature Pulse Rate 81 81 80 Respiratory Rate Blood Pressure Blood Pressure [Left] O2 Sat by Pulse 97 97 96 Oximetry 06/05/20 06/05/20 06/05/20 19:31 19:37 19:41 Temperature Pulse Rate 80 79 77 Respiratory Rate Blood Pressure Blood Pressure [Left] O2 Sat by Pulse 96 96 96 Oximetry 06/05/20 06/05/20 06/05/20 19:46 19:51 19:56 Temperature Pulse Rate 87 83 86 Respiratory Rate Blood Pressure Blood Pressure [Left] O2 Sat by Pulse 96 96 96 Oximetry 06/05/20 06/05/20 06/05/20 20:01 20:06 20:10 Temperature 98.3 F Pulse Rate 74 82 77 Respiratory 18 Rate Blood Pressure 139/76 Blood Pressure 139/76 [Left] O2 Sat by Pulse 96 96 96 Oximetry 06/05/20 06/05/20 06/05/20 20:11 20:16 20:21 Temperature Pulse Rate 78 90 83 Respiratory Rate Blood Pressure Blood Pressure [Left] O2 Sat by Pulse 96 97 97 Oximetry 06/05/20 06/05/20 06/05/20 20:26 20:31 20:36 Temperature Pulse Rate 82 81 78 Respiratory Rate Blood Pressure Blood Pressure [Left] O2 Sat by Pulse 98 97 96 Oximetry 06/05/20 06/05/20 06/05/20 20:41 20:46 20:51 Temperature Pulse Rate 75 77 79 Respiratory Rate Blood Pressure Blood Pressure [Left] O2 Sat by Pulse 96 96 96 Oximetry 06/05/20 06/05/20 06/05/20 20:56 21:01 21:06 Temperature Pulse Rate 76 87 78 Respiratory Rate Blood Pressure Blood Pressure [Left] O2 Sat by Pulse 96 97 96 Oximetry 06/05/20 06/05/20 06/05/20 21:09 21:11 21:16 Temperature Pulse Rate 83 79 79 Respiratory Rate Blood Pressure 134/74 Blood Pressure [Left] O2 Sat by Pulse 96 96 Oximetry 06/05/20 06/05/20 06/05/20 21:21 21:26 21:31 Temperature Pulse Rate 84 76 84 Respiratory Rate Blood Pressure Blood Pressure [Left] O2 Sat by Pulse 97 96 96 Oximetry 06/05/20 06/05/20 06/05/20 21:34 21:35 21:36 Temperature Pulse Rate 78 75 78 Respiratory Rate Blood Pressure 140/84 140/84 140/84 Blood Pressure [Left] O2 Sat by Pulse 97 Oximetry 06/05/20 06/05/20 06/05/20 21:41 21:46 21:51 Temperature Pulse Rate 76 81 72 Respiratory Rate Blood Pressure Blood Pressure [Left] O2 Sat by Pulse 96 97 96 Oximetry 06/05/20 06/05/20 06/05/20 21:56 22:01 22:06 Temperature Pulse Rate 72 74 76 Respiratory Rate Blood Pressure Blood Pressure [Left] O2 Sat by Pulse 96 95 95 Oximetry 06/05/20 06/05/20 06/05/20 22:09 22:11 22:16 Temperature Pulse Rate 74 75 76 Respiratory Rate Blood Pressure 126/74 Blood Pressure [Left] O2 Sat by Pulse 95 95 Oximetry 06/05/20 06/05/20 06/05/20 22:21 22:26 22:31 Temperature Pulse Rate 77 80 78 Respiratory Rate Blood Pressure Blood Pressure [Left] O2 Sat by Pulse 95 97 97 Oximetry 06/05/20 06/05/20 06/05/20 22:36 22:41 22:46 Temperature Pulse Rate 74 76 73 Respiratory Rate Blood Pressure Blood Pressure [Left] O2 Sat by Pulse 96 96 98 Oximetry 06/05/20 06/05/20 06/05/20 22:51 22:56 23:01 Temperature Pulse Rate 73 71 74 Respiratory Rate Blood Pressure Blood Pressure [Left] O2 Sat by Pulse 97 96 96 Oximetry 06/05/20 06/05/20 06/05/20 23:06 23:09 23:11 Temperature Pulse Rate 75 79 77 Respiratory Rate Blood Pressure 142/81 Blood Pressure [Left] O2 Sat by Pulse 96 96 Oximetry 06/05/20 06/05/20 06/05/20 23:16 23:21 23:26 Temperature Pulse Rate 68 75 76 Respiratory Rate Blood Pressure Blood Pressure [Left] O2 Sat by Pulse 97 95 96 Oximetry 06/05/20 06/05/20 06/05/20 23:31 23:36 23:41 Temperature Pulse Rate 75 76 72 Respiratory Rate Blood Pressure Blood Pressure [Left] O2 Sat by Pulse 96 96 97 Oximetry 06/05/20 06/05/20 06/05/20 23:46 23:51 23:56 Temperature Pulse Rate 71 76 75 Respiratory Rate Blood Pressure Blood Pressure [Left] O2 Sat by Pulse 97 96 96 Oximetry 06/06/20 06/06/20 06/06/20 00:01 00:06 00:10 Temperature Pulse Rate 75 78 93 H Respiratory Rate Blood Pressure 145/82 Blood Pressure [Left] O2 Sat by Pulse 96 96 Oximetry 06/06/20 06/06/20 06/06/20 00:11 00:16 00:21 Temperature Pulse Rate 81 74 86 Respiratory Rate Blood Pressure Blood Pressure [Left] O2 Sat by Pulse 96 96 97 Oximetry 06/06/20 06/06/20 06/06/20 00:26 00:31 00:36 Temperature Pulse Rate 90 76 79 Respiratory Rate Blood Pressure Blood Pressure [Left] O2 Sat by Pulse 96 96 97 Oximetry 06/06/20 06/06/20 06/06/20 00:41 00:46 00:51 Temperature Pulse Rate 92 H 84 83 Respiratory Rate Blood Pressure Blood Pressure [Left] O2 Sat by Pulse 97 96 96 Oximetry 06/06/20 06/06/20 06/06/20 00:56 01:01 01:06 Temperature Pulse Rate 82 84 78 Respiratory Rate Blood Pressure Blood Pressure [Left] O2 Sat by Pulse 96 96 96 Oximetry 06/06/20 06/06/20 06/06/20 01:09 01:11 01:16 Temperature Pulse Rate 80 75 84 Respiratory Rate Blood Pressure 122/76 Blood Pressure [Left] O2 Sat by Pulse 96 97 Oximetry 06/06/20 06/06/20 06/06/20 01:21 01:26 01:31 Temperature Pulse Rate 83 84 78 Respiratory Rate Blood Pressure Blood Pressure [Left] O2 Sat by Pulse 96 97 97 Oximetry 06/06/20 06/06/20 06/06/20 01:36 01:41 01:46 Temperature Pulse Rate 87 74 78 Respiratory Rate Blood Pressure Blood Pressure [Left] O2 Sat by Pulse 96 96 96 Oximetry 06/06/20 06/06/20 06/06/20 01:51 01:56 02:01 Temperature Pulse Rate 87 78 85 Respiratory Rate Blood Pressure Blood Pressure [Left] O2 Sat by Pulse 96 96 96 Oximetry 06/06/20 06/06/20 06/06/20 02:06 02:09 02:11 Temperature Pulse Rate 75 88 86 Respiratory Rate Blood Pressure 142/84 Blood Pressure [Left] O2 Sat by Pulse 96 96 Oximetry 06/06/20 06/06/20 06/06/20 02:16 02:27 02:32 Temperature Pulse Rate 90 92 H 85 Respiratory Rate Blood Pressure Blood Pressure [Left] O2 Sat by Pulse 96 97 96 Oximetry 06/06/20 06/06/20 06/06/20 02:37 02:42 02:47 Temperature Pulse Rate 84 81 87 Respiratory Rate Blood Pressure Blood Pressure [Left] O2 Sat by Pulse 96 96 96 Oximetry 06/06/20 06/06/20 06/06/20 02:52 02:57 03:02 Temperature Pulse Rate 86 88 81 Respiratory Rate Blood Pressure Blood Pressure [Left] O2 Sat by Pulse 96 96 96 Oximetry 06/06/20 06/06/20 06/06/20 03:07 03:09 03:12 Temperature Pulse Rate 85 78 74 Respiratory Rate Blood Pressure 135/84 Blood Pressure [Left] O2 Sat by Pulse 96 96 Oximetry 06/06/20 06/06/20 06/06/20 03:17 03:22 03:27 Temperature Pulse Rate 73 81 80 Respiratory Rate Blood Pressure Blood Pressure [Left] O2 Sat by Pulse 96 95 95 Oximetry 06/06/20 06/06/20 06/06/20 03:32 03:37 03:41 Temperature Pulse Rate 79 80 80 Respiratory Rate Blood Pressure Blood Pressure [Left] O2 Sat by Pulse 95 95 94 Oximetry 06/06/20 06/06/20 06/06/20 03:42 03:47 03:52 Temperature Pulse Rate 81 80 81 Respiratory Rate Blood Pressure Blood Pressure [Left] O2 Sat by Pulse 95 94 94 Oximetry 06/06/20 06/06/20 06/06/20 03:54 03:57 04:00 Temperature Pulse Rate 82 76 77 Respiratory Rate Blood Pressure Blood Pressure [Left] O2 Sat by Pulse 94 95 94 Oximetry 06/06/20 06/06/20 06/06/20 04:02 04:05 04:07 Temperature Pulse Rate 78 75 81 Respiratory Rate Blood Pressure Blood Pressure [Left] O2 Sat by Pulse 95 94 94 Oximetry 06/06/20 06/06/20 06/06/20 04:09 04:12 04:17 Temperature Pulse Rate 81 72 79 Respiratory Rate Blood Pressure 116/68 Blood Pressure [Left] O2 Sat by Pulse 95 95 Oximetry 06/06/20 06/06/20 06/06/20 04:20 04:22 04:27 Temperature Pulse Rate 81 85 93 H Respiratory Rate Blood Pressure Blood Pressure [Left] O2 Sat by Pulse 94 95 94 Oximetry 06/06/20 06/06/20 06/06/20 04:32 04:35 04:37 Temperature Pulse Rate 78 81 83 Respiratory Rate Blood Pressure Blood Pressure [Left] O2 Sat by Pulse 95 94 95 Oximetry 06/06/20 06/06/20 06/06/20 04:42 04:43 04:47 Temperature Pulse Rate 83 83 81 Respiratory Rate Blood Pressure Blood Pressure [Left] O2 Sat by Pulse 95 94 95 Oximetry 06/06/20 06/06/20 06/06/20 04:49 04:52 04:56 Temperature Pulse Rate 84 87 83 Respiratory Rate Blood Pressure Blood Pressure [Left] O2 Sat by Pulse 94 95 94 Oximetry 06/06/20 06/06/20 06/06/20 04:57 05:02 05:07 Temperature Pulse Rate 80 83 91 H Respiratory Rate Blood Pressure Blood Pressure [Left] O2 Sat by Pulse 95 95 95 Oximetry 06/06/20 06/06/20 06/06/20 05:10 05:12 05:17 Temperature Pulse Rate 91 H 82 77 Respiratory Rate Blood Pressure 120/68 Blood Pressure [Left] O2 Sat by Pulse 95 95 Oximetry 06/06/20 06/06/20 06/06/20 05:18 05:22 05:27 Temperature Pulse Rate 82 79 78 Respiratory Rate Blood Pressure Blood Pressure [Left] O2 Sat by Pulse 94 95 95 Oximetry 06/06/20 06/06/20 06/06/20 05:32 05:37 05:42 Temperature Pulse Rate 77 74 75 Respiratory Rate Blood Pressure Blood Pressure [Left] O2 Sat by Pulse 95 95 96 Oximetry 06/06/20 05:47 Temperature Pulse Rate 99 H Respiratory Rate Blood Pressure Blood Pressure [Left] O2 Sat by Pulse 96 Oximetry - Exam Breasts: deferred Cardiovascular: Regular rate Lungs: Normal air movement Abdomen: Present: normal appearance, soft. Absent: distention, tenderness Uterus: Present: normal FHR: auscultation normal, category 1 Uterine Contraction Monitor Mode: External Uterine Contraction Pattern: Irregular Uterine Tone Measurement Phase: Resting Uterine Contraction Intensity: Mild Extremities: normal Deep Tendon Reflex Grade: Normal +2 - Labs Labs: Abnormal Labs 06/04/20 06/04/20 06/05/20 18:30 18:30 00:59 WBC 17.4 H RDW 13.0 L Plt Count POC Glucose Uric Acid Calcium 8.0 L Magnesium 5.90 H AST 57 H Alkaline Phosphatase 170 H Lactate Dehydrogenase Total Protein 6.0 L Albumin 3.0 L Urine Creatinine Ur Total Protein 24 Hr Urine Total Protein 06/05/20 06/05/20 06/05/20 06:58 07:44 07:44 WBC 14.6 H RDW Plt Count 138 L POC Glucose 113 H Uric Acid 7.8 H Calcium Magnesium 7.30 H AST 49 H Alkaline Phosphatase Lactate Dehydrogenase 289 H Total Protein Albumin Urine Creatinine Ur Total Protein 24 Hr Urine Total Protein 06/05/20 06/05/20 06/05/20 11:52 12:19 17:45 WBC RDW Plt Count POC Glucose 106 H Uric Acid Calcium Magnesium 7.00 H 6.30 H AST Alkaline Phosphatase Lactate Dehydrogenase Total Protein Albumin Urine Creatinine Ur Total Protein 24 Hr Urine Total Protein 06/05/20 06/05/20 06/05/20 18:27 22:50 22:50 WBC RDW Plt Count POC Glucose 109 H Uric Acid Calcium Magnesium AST Alkaline Phosphatase Lactate Dehydrogenase Total Protein Albumin Urine Creatinine 21.4 H 21.3 H Ur Total Protein 24 Hr 1406.00 H Urine Total Protein 37 H 06/06/20 00:41 WBC RDW Plt Count POC Glucose 119 H Uric Acid Calcium Magnesium AST Alkaline Phosphatase Lactate Dehydrogenase Total Protein Albumin Urine Creatinine Ur Total Protein 24 Hr Urine Total Protein Laboratory Results - last 24 hr 06/05/20 06/05/20 06/05/20 06:58 07:44 07:44 WBC RBC Hgb Hct MCV MCH MCHC RDW Plt Count Creatinine 0.6 Estimated GFR > 60 POC Glucose 113 H Uric Acid 7.8 H Magnesium 7.30 H AST 49 H ALT 46 Lactate Dehydrogenase 289 H Urine Total Volume Urine Creatinine Height (in) Weight (lb) Creatinine Clearance Ur Total Protein 24 Hr Urine Total Protein Syphilis IgG Antibody Nonreactive Coronavirus (PCR) 06/05/20 06/05/20 06/05/20 07:44 11:52 12:19 WBC 14.6 H RBC 4.24 Hgb 12.6 Hct 37.7 MCV 89 MCH 30 MCHC 34 RDW 13.3 Plt Count 138 L Creatinine Estimated GFR POC Glucose 106 H Uric Acid Magnesium 7.00 H AST ALT Lactate Dehydrogenase Urine Total Volume Urine Creatinine Height (in) Weight (lb) Creatinine Clearance Ur Total Protein 24 Hr Urine Total Protein Syphilis IgG Antibody Coronavirus (PCR) 06/05/20 06/05/20 06/05/20 17:45 18:27 22:50 WBC RBC Hgb Hct MCV MCH MCHC RDW Plt Count Creatinine Estimated GFR POC Glucose 109 H Uric Acid Magnesium 6.30 H AST ALT Lactate Dehydrogenase Urine Total Volume 3800 Urine Creatinine 21.4 H Height (in) Weight (lb) Creatinine Clearance Ur Total Protein 24 Hr 1406.00 H Urine Total Protein 37 H Syphilis IgG Antibody Coronavirus (PCR) 06/05/20 06/05/20 06/06/20 22:50 Unknown 00:41 WBC RBC Hgb Hct MCV MCH MCHC RDW Plt Count Creatinine Estimated GFR POC Glucose 119 H Uric Acid Magnesium AST ALT Lactate Dehydrogenase Urine Total Volume 3800 Urine Creatinine 21.3 H Height (in) 60.0 Weight (lb) 170.0 Creatinine Clearance 93 Ur Total Protein 24 Hr Urine Total Protein Syphilis IgG Antibody Coronavirus (PCR) Negative
--- NOTE | 2020-06-06 07:53 | Progress Note ---
Assessment and Plan IUP at 33 3/7 weeks gestation s/p BMZ Preeclampsia with severe features - transaminitis , mild thrombocytopenia GDM -diet REc: Continue to monitor for worsening HTN, distress Continue Labetalol 300mg BID , titrate to maintain BP 120-160/80-105mmhg IV Hydralazine prn SBP>160mmhg DBP>110mmhg Check CBC/CMP today to follow the LFT and plt count Continue accuchecks, ADA diet Twice weekly BPP /RUY Subjective - Subjective Date of service: 06/06/20 Principal diagnosis: IUP @ 33w3d; severe pre-e; GDM diet controlled Interval history: laying in bed on NST , no complaints Denied ESCOBAR, visual changes, CP, RUQ pain Patient reports: movement normal, no new complaints (denies ESCOBAR, visual changes or epigastric pain), no loss of fluid, no vaginal bleeding, no contractions Objective - Vital Signs Vital Signs: Vital Signs - 12hr 06/05/20 06/05/20 06/05/20 19:51 19:56 20:01 Temperature Pulse Rate 83 86 74 Respiratory Rate Blood Pressure Blood Pressure [Left] O2 Sat by Pulse 96 96 96 Oximetry 06/05/20 06/05/20 06/05/20 20:06 20:10 20:11 Temperature 98.3 F Pulse Rate 82 77 78 Respiratory 18 Rate Blood Pressure 139/76 Blood Pressure 139/76 [Left] O2 Sat by Pulse 96 96 96 Oximetry 06/05/20 06/05/20 06/05/20 20:16 20:21 20:26 Temperature Pulse Rate 90 83 82 Respiratory Rate Blood Pressure Blood Pressure [Left] O2 Sat by Pulse 97 97 98 Oximetry 06/05/20 06/05/20 06/05/20 20:31 20:36 20:41 Temperature Pulse Rate 81 78 75 Respiratory Rate Blood Pressure Blood Pressure [Left] O2 Sat by Pulse 97 96 96 Oximetry 06/05/20 06/05/20 06/05/20 20:46 20:51 20:56 Temperature Pulse Rate 77 79 76 Respiratory Rate Blood Pressure Blood Pressure [Left] O2 Sat by Pulse 96 96 96 Oximetry 06/05/20 06/05/20 06/05/20 21:01 21:06 21:09 Temperature Pulse Rate 87 78 83 Respiratory Rate Blood Pressure 134/74 Blood Pressure [Left] O2 Sat by Pulse 97 96 Oximetry 06/05/20 06/05/20 06/05/20 21:11 21:16 21:21 Temperature Pulse Rate 79 79 84 Respiratory Rate Blood Pressure Blood Pressure [Left] O2 Sat by Pulse 96 96 97 Oximetry 06/05/20 06/05/20 06/05/20 21:26 21:31 21:34 Temperature Pulse Rate 76 84 78 Respiratory Rate Blood Pressure 140/84 Blood Pressure [Left] O2 Sat by Pulse 96 96 Oximetry 06/05/20 06/05/20 06/05/20 21:35 21:36 21:41 Temperature Pulse Rate 75 78 76 Respiratory Rate Blood Pressure 140/84 140/84 Blood Pressure [Left] O2 Sat by Pulse 97 96 Oximetry 06/05/20 06/05/20 06/05/20 21:46 21:51 21:56 Temperature Pulse Rate 81 72 72 Respiratory Rate Blood Pressure Blood Pressure [Left] O2 Sat by Pulse 97 96 96 Oximetry 06/05/20 06/05/20 06/05/20 22:01 22:06 22:09 Temperature Pulse Rate 74 76 74 Respiratory Rate Blood Pressure 126/74 Blood Pressure [Left] O2 Sat by Pulse 95 95 Oximetry 06/05/20 06/05/20 06/05/20 22:11 22:16 22:21 Temperature Pulse Rate 75 76 77 Respiratory Rate Blood Pressure Blood Pressure [Left] O2 Sat by Pulse 95 95 95 Oximetry 06/05/20 06/05/20 06/05/20 22:26 22:31 22:36 Temperature Pulse Rate 80 78 74 Respiratory Rate Blood Pressure Blood Pressure [Left] O2 Sat by Pulse 97 97 96 Oximetry 06/05/20 06/05/20 06/05/20 22:41 22:46 22:51 Temperature Pulse Rate 76 73 73 Respiratory Rate Blood Pressure Blood Pressure [Left] O2 Sat by Pulse 96 98 97 Oximetry 06/05/20 06/05/20 06/05/20 22:56 23:01 23:06 Temperature Pulse Rate 71 74 75 Respiratory Rate Blood Pressure Blood Pressure [Left] O2 Sat by Pulse 96 96 96 Oximetry 06/05/20 06/05/20 06/05/20 23:09 23:11 23:16 Temperature Pulse Rate 79 77 68 Respiratory Rate Blood Pressure 142/81 Blood Pressure [Left] O2 Sat by Pulse 96 97 Oximetry 06/05/20 06/05/20 06/05/20 23:21 23:26 23:31 Temperature Pulse Rate 75 76 75 Respiratory Rate Blood Pressure Blood Pressure [Left] O2 Sat by Pulse 95 96 96 Oximetry 06/05/20 06/05/20 06/05/20 23:36 23:41 23:46 Temperature Pulse Rate 76 72 71 Respiratory Rate Blood Pressure Blood Pressure [Left] O2 Sat by Pulse 96 97 97 Oximetry 06/05/20 06/05/20 06/06/20 23:51 23:56 00:01 Temperature Pulse Rate 76 75 75 Respiratory Rate Blood Pressure Blood Pressure [Left] O2 Sat by Pulse 96 96 96 Oximetry 06/06/20 06/06/20 06/06/20 00:06 00:10 00:11 Temperature Pulse Rate 78 93 H 81 Respiratory Rate Blood Pressure 145/82 Blood Pressure [Left] O2 Sat by Pulse 96 96 Oximetry 06/06/20 06/06/20 06/06/20 00:16 00:21 00:26 Temperature Pulse Rate 74 86 90 Respiratory Rate Blood Pressure Blood Pressure [Left] O2 Sat by Pulse 96 97 96 Oximetry 06/06/20 06/06/20 06/06/20 00:31 00:36 00:41 Temperature Pulse Rate 76 79 92 H Respiratory Rate Blood Pressure Blood Pressure [Left] O2 Sat by Pulse 96 97 97 Oximetry 06/06/20 06/06/20 06/06/20 00:46 00:51 00:56 Temperature Pulse Rate 84 83 82 Respiratory Rate Blood Pressure Blood Pressure [Left] O2 Sat by Pulse 96 96 96 Oximetry 06/06/20 06/06/20 06/06/20 01:01 01:06 01:09 Temperature Pulse Rate 84 78 80 Respiratory Rate Blood Pressure 122/76 Blood Pressure [Left] O2 Sat by Pulse 96 96 Oximetry 06/06/20 06/06/20 06/06/20 01:11 01:16 01:21 Temperature Pulse Rate 75 84 83 Respiratory Rate Blood Pressure Blood Pressure [Left] O2 Sat by Pulse 96 97 96 Oximetry 06/06/20 06/06/20 06/06/20 01:26 01:31 01:36 Temperature Pulse Rate 84 78 87 Respiratory Rate Blood Pressure Blood Pressure [Left] O2 Sat by Pulse 97 97 96 Oximetry 06/06/20 06/06/20 06/06/20 01:41 01:46 01:51 Temperature Pulse Rate 74 78 87 Respiratory Rate Blood Pressure Blood Pressure [Left] O2 Sat by Pulse 96 96 96 Oximetry 06/06/20 06/06/20 06/06/20 01:56 02:01 02:06 Temperature Pulse Rate 78 85 75 Respiratory Rate Blood Pressure Blood Pressure [Left] O2 Sat by Pulse 96 96 96 Oximetry 06/06/20 06/06/20 06/06/20 02:09 02:11 02:16 Temperature Pulse Rate 88 86 90 Respiratory Rate Blood Pressure 142/84 Blood Pressure [Left] O2 Sat by Pulse 96 96 Oximetry 06/06/20 06/06/20 06/06/20 02:27 02:32 02:37 Temperature Pulse Rate 92 H 85 84 Respiratory Rate Blood Pressure Blood Pressure [Left] O2 Sat by Pulse 97 96 96 Oximetry 06/06/20 06/06/20 06/06/20 02:42 02:47 02:52 Temperature Pulse Rate 81 87 86 Respiratory Rate Blood Pressure Blood Pressure [Left] O2 Sat by Pulse 96 96 96 Oximetry 06/06/20 06/06/20 06/06/20 02:57 03:02 03:07 Temperature Pulse Rate 88 81 85 Respiratory Rate Blood Pressure Blood Pressure [Left] O2 Sat by Pulse 96 96 96 Oximetry 06/06/20 06/06/20 06/06/20 03:09 03:12 03:17 Temperature Pulse Rate 78 74 73 Respiratory Rate Blood Pressure 135/84 Blood Pressure [Left] O2 Sat by Pulse 96 96 Oximetry 06/06/20 06/06/20 06/06/20 03:22 03:27 03:32 Temperature Pulse Rate 81 80 79 Respiratory Rate Blood Pressure Blood Pressure [Left] O2 Sat by Pulse 95 95 95 Oximetry 06/06/20 06/06/20 06/06/20 03:37 03:41 03:42 Temperature Pulse Rate 80 80 81 Respiratory Rate Blood Pressure Blood Pressure [Left] O2 Sat by Pulse 95 94 95 Oximetry 06/06/20 06/06/20 06/06/20 03:47 03:52 03:54 Temperature Pulse Rate 80 81 82 Respiratory Rate Blood Pressure Blood Pressure [Left] O2 Sat by Pulse 94 94 94 Oximetry 06/06/20 06/06/20 06/06/20 03:57 04:00 04:02 Temperature Pulse Rate 76 77 78 Respiratory Rate Blood Pressure Blood Pressure [Left] O2 Sat by Pulse 95 94 95 Oximetry 06/06/20 06/06/20 06/06/20 04:05 04:07 04:09 Temperature Pulse Rate 75 81 81 Respiratory Rate Blood Pressure 116/68 Blood Pressure [Left] O2 Sat by Pulse 94 94 Oximetry 06/06/20 06/06/20 06/06/20 04:12 04:17 04:20 Temperature Pulse Rate 72 79 81 Respiratory Rate Blood Pressure Blood Pressure [Left] O2 Sat by Pulse 95 95 94 Oximetry 06/06/20 06/06/20 06/06/20 04:22 04:27 04:32 Temperature Pulse Rate 85 93 H 78 Respiratory Rate Blood Pressure Blood Pressure [Left] O2 Sat by Pulse 95 94 95 Oximetry 06/06/20 06/06/20 06/06/20 04:35 04:37 04:42 Temperature Pulse Rate 81 83 83 Respiratory Rate Blood Pressure Blood Pressure [Left] O2 Sat by Pulse 94 95 95 Oximetry 06/06/20 06/06/20 06/06/20 04:43 04:47 04:49 Temperature Pulse Rate 83 81 84 Respiratory Rate Blood Pressure Blood Pressure [Left] O2 Sat by Pulse 94 95 94 Oximetry 06/06/20 06/06/20 06/06/20 04:52 04:56 04:57 Temperature Pulse Rate 87 83 80 Respiratory Rate Blood Pressure Blood Pressure [Left] O2 Sat by Pulse 95 94 95 Oximetry 06/06/20 06/06/20 06/06/20 05:02 05:07 05:10 Temperature Pulse Rate 83 91 H 91 H Respiratory Rate Blood Pressure 120/68 Blood Pressure [Left] O2 Sat by Pulse 95 95 Oximetry 06/06/20 06/06/20 06/06/20 05:12 05:17 05:18 Temperature Pulse Rate 82 77 82 Respiratory Rate Blood Pressure Blood Pressure [Left] O2 Sat by Pulse 95 95 94 Oximetry 06/06/20 06/06/20 06/06/20 05:22 05:27 05:32 Temperature Pulse Rate 79 78 77 Respiratory Rate Blood Pressure Blood Pressure [Left] O2 Sat by Pulse 95 95 95 Oximetry 06/06/20 06/06/20 06/06/20 05:37 05:42 05:47 Temperature Pulse Rate 74 75 99 H Respiratory Rate Blood Pressure Blood Pressure [Left] O2 Sat by Pulse 95 96 96 Oximetry 06/06/20 06/06/20 06/06/20 05:52 05:57 06:02 Temperature Pulse Rate 87 83 82 Respiratory Rate Blood Pressure Blood Pressure [Left] O2 Sat by Pulse 95 96 96 Oximetry 06/06/20 06/06/20 06/06/20 06:07 06:09 06:12 Temperature Pulse Rate 81 79 79 Respiratory Rate Blood Pressure 112/66 Blood Pressure [Left] O2 Sat by Pulse 96 96 Oximetry 06/06/20 06/06/20 06/06/20 06:17 06:22 06:27 Temperature Pulse Rate 75 81 88 Respiratory Rate Blood Pressure Blood Pressure [Left] O2 Sat by Pulse 96 96 96 Oximetry 06/06/20 06/06/20 06/06/20 06:32 06:37 06:42 Temperature Pulse Rate 93 H 93 H 88 Respiratory Rate Blood Pressure Blood Pressure [Left] O2 Sat by Pulse 96 95 96 Oximetry 06/06/20 06/06/20 06/06/20 06:53 06:58 07:03 Temperature Pulse Rate 95 H 86 83 Respiratory Rate Blood Pressure Blood Pressure [Left] O2 Sat by Pulse 95 96 96 Oximetry 06/06/20 06/06/20 06/06/20 07:08 07:10 07:13 Temperature Pulse Rate 91 H 77 83 Respiratory Rate Blood Pressure 135/75 Blood Pressure [Left] O2 Sat by Pulse 96 96 Oximetry 06/06/20 06/06/20 06/06/20 07:18 07:23 07:28 Temperature Pulse Rate 90 85 79 Respiratory Rate Blood Pressure Blood Pressure [Left] O2 Sat by Pulse 96 96 96 Oximetry 06/06/20 06/06/20 06/06/20 07:33 07:38 07:43 Temperature Pulse Rate 78 78 78 Respiratory Rate Blood Pressure Blood Pressure [Left] O2 Sat by Pulse 96 96 96 Oximetry - Exam Narrative Exam: NAD laying in bed Abdomen: Present: soft FHR: other (monitor adjusted fhr 130's) Uterine Contraction Monitor Mode: External (absent contractions) - Labs Labs: Abnormal Labs 06/04/20 06/04/20 06/05/20 18:30 18:30 00:59 WBC 17.4 H RDW 13.0 L Plt Count POC Glucose Uric Acid Calcium 8.0 L Magnesium 5.90 H AST 57 H Alkaline Phosphatase 170 H Lactate Dehydrogenase Total Protein 6.0 L Albumin 3.0 L Urine Creatinine Ur Total Protein 24 Hr Urine Total Protein 06/05/20 06/05/20 06/05/20 06:58 07:44 07:44 WBC 14.6 H RDW Plt Count 138 L POC Glucose 113 H Uric Acid 7.8 H Calcium Magnesium 7.30 H AST 49 H Alkaline Phosphatase Lactate Dehydrogenase 289 H Total Protein Albumin Urine Creatinine Ur Total Protein 24 Hr Urine Total Protein 06/05/20 06/05/20 06/05/20 11:52 12:19 17:45 WBC RDW Plt Count POC Glucose 106 H Uric Acid Calcium Magnesium 7.00 H 6.30 H AST Alkaline Phosphatase Lactate Dehydrogenase Total Protein Albumin Urine Creatinine Ur Total Protein 24 Hr Urine Total Protein 06/05/20 06/05/20 06/05/20 18:27 22:50 22:50 WBC RDW Plt Count POC Glucose 109 H Uric Acid Calcium Magnesium AST Alkaline Phosphatase Lactate Dehydrogenase Total Protein Albumin Urine Creatinine 21.4 H 21.3 H Ur Total Protein 24 Hr 1406.00 H Urine Total Protein 37 H 06/06/20 06/06/20 00:41 06:58 WBC RDW Plt Count POC Glucose 119 H 113 H Uric Acid Calcium Magnesium AST Alkaline Phosphatase Lactate Dehydrogenase Total Protein Albumin Urine Creatinine Ur Total Protein 24 Hr Urine Total Protein Laboratory Results - last 24 hr 06/05/20 06/05/20 06/05/20 06:58 07:44 07:44 WBC RBC Hgb Hct MCV MCH MCHC RDW Plt Count Creatinine 0.6 Estimated GFR > 60 POC Glucose 113 H Uric Acid 7.8 H Magnesium 7.30 H AST 49 H ALT 46 Lactate Dehydrogenase 289 H Urine Total Volume Urine Creatinine Height (in) Weight (lb) Creatinine Clearance Ur Total Protein 24 Hr Urine Total Protein Syphilis IgG Antibody Nonreactive Coronavirus (PCR) 06/05/20 06/05/20 06/05/20 07:44 11:52 12:19 WBC 14.6 H RBC 4.24 Hgb 12.6 Hct 37.7 MCV 89 MCH 30 MCHC 34 RDW 13.3 Plt Count 138 L Creatinine Estimated GFR POC Glucose 106 H Uric Acid Magnesium 7.00 H AST ALT Lactate Dehydrogenase Urine Total Volume Urine Creatinine Height (in) Weight (lb) Creatinine Clearance Ur Total Protein 24 Hr Urine Total Protein Syphilis IgG Antibody Coronavirus (PCR) 06/05/20 06/05/20 06/05/20 17:45 18:27 22:50 WBC RBC Hgb Hct MCV MCH MCHC RDW Plt Count Creatinine Estimated GFR POC Glucose 109 H Uric Acid Magnesium 6.30 H AST ALT Lactate Dehydrogenase Urine Total Volume 3800 Urine Creatinine 21.4 H Height (in) Weight (lb) Creatinine Clearance Ur Total Protein 24 Hr 1406.00 H Urine Total Protein 37 H Syphilis IgG Antibody Coronavirus (PCR) 06/05/20 06/05/20 06/06/20 22:50 Unknown 00:41 WBC RBC Hgb Hct MCV MCH MCHC RDW Plt Count Creatinine Estimated GFR POC Glucose 119 H Uric Acid Magnesium AST ALT Lactate Dehydrogenase Urine Total Volume 3800 Urine Creatinine 21.3 H Height (in) 60.0 Weight (lb) 170.0 Creatinine Clearance 93 Ur Total Protein 24 Hr Urine Total Protein Syphilis IgG Antibody Coronavirus (PCR) Negative 06/06/20 06:58 WBC RBC Hgb Hct MCV MCH MCHC RDW Plt Count Creatinine Estimated GFR POC Glucose 113 H Uric Acid Magnesium AST ALT Lactate Dehydrogenase Urine Total Volume Urine Creatinine Height (in) Weight (lb) Creatinine Clearance Ur Total Protein 24 Hr Urine Total Protein Syphilis IgG Antibody Coronavirus (PCR)
[2020-06-06 08:43] LABS: Basophils % (Auto) 0.1 % (0.0-1.8); Hematocrit 33.8 % (30.3-42.9); Hemoglobin 11.2 gm/dl (10.1-14.3); Lymphocytes # (Auto) 1.3 K/mm3 (1.2-5.4); Lymphocytes % (Auto) 7.8 % (13.4-35.0); Mean Corpuscular HGB Conc 33 % (30-34); Mean Corpuscular Volume 90 fl (79-97); Monocytes # (Auto) 0.5 K/mm3 (0.0-0.8); Monocytes % (Auto) 3.2 % (0.0-7.3); Platelet Count 147 K/mm3 (140-440); Red Blood Count 3.77 M/mm3 (3.65-5.03); Red Cell Distribution Width 13.4 % (13.2-15.2)
--- NOTE | 2020-06-06 08:47 | Progress Note ---
Assessment and Plan Plan of care per [facility] recommendations - Patient Problems (1) 33 weeks gestation of Onset Date: ~06/06/20 Current Visit: Yes Status: Acute Plan to address problem: s/p BMZ completed 06/05/20 Twice weekly BPP /RUY Scheduled for 06/07/20 NICU consult completed (2) Pre-eclampsia, severe, third trimester Onset Date: ~06/06/20 Current Visit: Yes Status: Acute Plan to address problem: Preeclampsia with severe features - transaminitis , mild thrombocytopenia TP 1406 mg/24h Continue to monitor for worsening HTN, distress Continue Labetalol 300mg BID , titrate to maintain BP 120-160/80-105mmhg IV Hydralazine prn SBP>160mmhg DBP>110mmhg Check CBC/CMP today to follow the LFT and plt count: Plts 147K(nl) CMP (P) Delivery is advised at 34 weeks gestation. Immediate delivery is advised in the setting of resistant severe HTN, despite maximum doses o f IV antihypertensive treatment , labor distress, oligohydramnios, renal failure, HELLP, pulmonary edema, eclampsia (3) Gestational diabetes mellitus (GDM) Onset Date: ~06/06/20 Current Visit: Yes Status: Acute Qualifiers: Gestational diabetes mellitus control: diet-controlled Trimester: third trimester Qualified Code(s): O24.410 - Gestational diabetes mellitus in , diet controlled Plan to address problem: Continue accuchecks, ADA,GDM -diet Subjective - Subjective Date of service: 06/06/20 Principal diagnosis: IUP @ 33w3d; severe pre-e; GDM diet controlled Patient reports: movement normal, no new complaints (denies ESCOBAR, visual changes or epigastric pain), no loss of fluid, no vaginal bleeding, no contractions Objective - Vital Signs Vital Signs: Vital Signs - 12hr 06/05/20 06/05/20 06/05/20 20:51 20:56 21:01 Pulse Rate 79 76 87 Blood Pressure O2 Sat by Pulse 96 96 97 Oximetry 06/05/20 06/05/20 06/05/20 21:06 21:09 21:11 Pulse Rate 78 83 79 Blood Pressure 134/74 O2 Sat by Pulse 96 96 Oximetry 06/05/20 06/05/20 06/05/20 21:16 21:21 21:26 Pulse Rate 79 84 76 Blood Pressure O2 Sat by Pulse 96 97 96 Oximetry 06/05/20 06/05/20 06/05/20 21:31 21:34 21:35 Pulse Rate 84 78 75 Blood Pressure 140/84 140/84 O2 Sat by Pulse 96 Oximetry 06/05/20 06/05/20 06/05/20 21:36 21:41 21:46 Pulse Rate 78 76 81 Blood Pressure 140/84 O2 Sat by Pulse 97 96 97 Oximetry 06/05/20 06/05/20 06/05/20 21:51 21:56 22:01 Pulse Rate 72 72 74 Blood Pressure O2 Sat by Pulse 96 96 95 Oximetry 06/05/20 06/05/20 06/05/20 22:06 22:09 22:11 Pulse Rate 76 74 75 Blood Pressure 126/74 O2 Sat by Pulse 95 95 Oximetry 06/05/20 06/05/20 06/05/20 22:16 22:21 22:26 Pulse Rate 76 77 80 Blood Pressure O2 Sat by Pulse 95 95 97 Oximetry 06/05/20 06/05/20 06/05/20 22:31 22:36 22:41 Pulse Rate 78 74 76 Blood Pressure O2 Sat by Pulse 97 96 96 Oximetry 06/05/20 06/05/20 06/05/20 22:46 22:51 22:56 Pulse Rate 73 73 71 Blood Pressure O2 Sat by Pulse 98 97 96 Oximetry 06/05/20 06/05/20 06/05/20 23:01 23:06 23:09 Pulse Rate 74 75 79 Blood Pressure 142/81 O2 Sat by Pulse 96 96 Oximetry 06/05/20 06/05/20 06/05/20 23:11 23:16 23:21 Pulse Rate 77 68 75 Blood Pressure O2 Sat by Pulse 96 97 95 Oximetry 06/05/20 06/05/20 06/05/20 23:26 23:31 23:36 Pulse Rate 76 75 76 Blood Pressure O2 Sat by Pulse 96 96 96 Oximetry 06/05/20 06/05/20 06/05/20 23:41 23:46 23:51 Pulse Rate 72 71 76 Blood Pressure O2 Sat by Pulse 97 97 96 Oximetry 06/05/20 06/06/20 06/06/20 23:56 00:01 00:06 Pulse Rate 75 75 78 Blood Pressure O2 Sat by Pulse 96 96 96 Oximetry 06/06/20 06/06/20 06/06/20 00:10 00:11 00:16 Pulse Rate 93 H 81 74 Blood Pressure 145/82 O2 Sat by Pulse 96 96 Oximetry 06/06/20 06/06/20 06/06/20 00:21 00:26 00:31 Pulse Rate 86 90 76 Blood Pressure O2 Sat by Pulse 97 96 96 Oximetry 06/06/20 06/06/20 06/06/20 00:36 00:41 00:46 Pulse Rate 79 92 H 84 Blood Pressure O2 Sat by Pulse 97 97 96 Oximetry 06/06/20 06/06/20 06/06/20 00:51 00:56 01:01 Pulse Rate 83 82 84 Blood Pressure O2 Sat by Pulse 96 96 96 Oximetry 06/06/20 06/06/20 06/06/20 01:06 01:09 01:11 Pulse Rate 78 80 75 Blood Pressure 122/76 O2 Sat by Pulse 96 96 Oximetry 06/06/20 06/06/20 06/06/20 01:16 01:21 01:26 Pulse Rate 84 83 84 Blood Pressure O2 Sat by Pulse 97 96 97 Oximetry 06/06/20 06/06/20 06/06/20 01:31 01:36 01:41 Pulse Rate 78 87 74 Blood Pressure O2 Sat by Pulse 97 96 96 Oximetry 06/06/20 06/06/20 06/06/20 01:46 01:51 01:56 Pulse Rate 78 87 78 Blood Pressure O2 Sat by Pulse 96 96 96 Oximetry 06/06/20 06/06/20 06/06/20 02:01 02:06 02:09 Pulse Rate 85 75 88 Blood Pressure 142/84 O2 Sat by Pulse 96 96 Oximetry 06/06/20 06/06/20 06/06/20 02:11 02:16 02:27 Pulse Rate 86 90 92 H Blood Pressure O2 Sat by Pulse 96 96 97 Oximetry 06/06/20 06/06/20 06/06/20 02:32 02:37 02:42 Pulse Rate 85 84 81 Blood Pressure O2 Sat by Pulse 96 96 96 Oximetry 06/06/20 06/06/20 06/06/20 02:47 02:52 02:57 Pulse Rate 87 86 88 Blood Pressure O2 Sat by Pulse 96 96 96 Oximetry 06/06/20 06/06/20 06/06/20 03:02 03:07 03:09 Pulse Rate 81 85 78 Blood Pressure 135/84 O2 Sat by Pulse 96 96 Oximetry 06/06/20 06/06/20 06/06/20 03:12 03:17 03:22 Pulse Rate 74 73 81 Blood Pressure O2 Sat by Pulse 96 96 95 Oximetry 06/06/20 06/06/20 06/06/20 03:27 03:32 03:37 Pulse Rate 80 79 80 Blood Pressure O2 Sat by Pulse 95 95 95 Oximetry 06/06/20 06/06/20 06/06/20 03:41 03:42 03:47 Pulse Rate 80 81 80 Blood Pressure O2 Sat by Pulse 94 95 94 Oximetry 06/06/20 06/06/20 06/06/20 03:52 03:54 03:57 Pulse Rate 81 82 76 Blood Pressure O2 Sat by Pulse 94 94 95 Oximetry 06/06/20 06/06/20 06/06/20 04:00 04:02 04:05 Pulse Rate 77 78 75 Blood Pressure O2 Sat by Pulse 94 95 94 Oximetry 06/06/20 06/06/20 06/06/20 04:07 04:09 04:12 Pulse Rate 81 81 72 Blood Pressure 116/68 O2 Sat by Pulse 94 95 Oximetry 06/06/20 06/06/20 06/06/20 04:17 04:20 04:22 Pulse Rate 79 81 85 Blood Pressure O2 Sat by Pulse 95 94 95 Oximetry 06/06/20 06/06/20 06/06/20 04:27 04:32 04:35 Pulse Rate 93 H 78 81 Blood Pressure O2 Sat by Pulse 94 95 94 Oximetry 06/06/20 06/06/20 06/06/20 04:37 04:42 04:43 Pulse Rate 83 83 83 Blood Pressure O2 Sat by Pulse 95 95 94 Oximetry 06/06/20 06/06/20 06/06/20 04:47 04:49 04:52 Pulse Rate 81 84 87 Blood Pressure O2 Sat by Pulse 95 94 95 Oximetry 06/06/20 06/06/20 06/06/20 04:56 04:57 05:02 Pulse Rate 83 80 83 Blood Pressure O2 Sat by Pulse 94 95 95 Oximetry 06/06/20 06/06/20 06/06/20 05:07 05:10 05:12 Pulse Rate 91 H 91 H 82 Blood Pressure 120/68 O2 Sat by Pulse 95 95 Oximetry 06/06/20 06/06/20 06/06/20 05:17 05:18 05:22 Pulse Rate 77 82 79 Blood Pressure O2 Sat by Pulse 95 94 95 Oximetry 06/06/20 06/06/20 06/06/20 05:27 05:32 05:37 Pulse Rate 78 77 74 Blood Pressure O2 Sat by Pulse 95 95 95 Oximetry 06/06/20 06/06/20 06/06/20 05:42 05:47 05:52 Pulse Rate 75 99 H 87 Blood Pressure O2 Sat by Pulse 96 96 95 Oximetry 06/06/20 06/06/20 06/06/20 05:57 06:02 06:07 Pulse Rate 83 82 81 Blood Pressure O2 Sat by Pulse 96 96 96 Oximetry 06/06/20 06/06/20 06/06/20 06:09 06:12 06:17 Pulse Rate 79 79 75 Blood Pressure 112/66 O2 Sat by Pulse 96 96 Oximetry 06/06/20 06/06/20 06/06/20 06:22 06:27 06:32 Pulse Rate 81 88 93 H Blood Pressure O2 Sat by Pulse 96 96 96 Oximetry 06/06/20 06/06/20 06/06/20 06:37 06:42 06:53 Pulse Rate 93 H 88 95 H Blood Pressure O2 Sat by Pulse 95 96 95 Oximetry 06/06/20 06/06/20 06/06/20 06:58 07:03 07:08 Pulse Rate 86 83 91 H Blood Pressure O2 Sat by Pulse 96 96 96 Oximetry 06/06/20 06/06/20 06/06/20 07:10 07:13 07:18 Pulse Rate 77 83 90 Blood Pressure 135/75 O2 Sat by Pulse 96 96 Oximetry 06/06/20 06/06/20 06/06/20 07:23 07:28 07:33 Pulse Rate 85 79 78 Blood Pressure O2 Sat by Pulse 96 96 96 Oximetry 06/06/20 06/06/20 06/06/20 07:38 07:43 07:48 Pulse Rate 78 78 84 Blood Pressure O2 Sat by Pulse 96 96 96 Oximetry 06/06/20 06/06/20 06/06/20 07:53 07:58 08:03 Pulse Rate 84 84 75 Blood Pressure O2 Sat by Pulse 96 96 96 Oximetry 06/06/20 06/06/20 06/06/20 08:08 08:09 08:13 Pulse Rate 84 73 79 Blood Pressure 126/82 O2 Sat by Pulse 97 97 Oximetry 06/06/20 06/06/20 06/06/20 08:18 08:23 08:28 Pulse Rate 85 84 84 Blood Pressure O2 Sat by Pulse 97 97 96 Oximetry 06/06/20 06/06/20 08:33 08:41 Pulse Rate 83 90 Blood Pressure O2 Sat by Pulse 97 98 Oximetry - Labs Labs: Abnormal Labs 06/04/20 06/04/20 06/05/20 18:30 18:30 00:59 WBC 17.4 H RDW 13.0 L Plt Count Lymph % (Auto) Seg Neutrophils % Seg Neutrophils # POC Glucose Uric Acid Calcium 8.0 L Magnesium 5.90 H AST 57 H Alkaline Phosphatase 170 H Lactate Dehydrogenase Total Protein 6.0 L Albumin 3.0 L Urine Creatinine Ur Total Protein 24 Hr Urine Total Protein 06/05/20 06/05/20 06/05/20 06:58 07:44 07:44 WBC 14.6 H RDW Plt Count 138 L Lymph % (Auto) Seg Neutrophils % Seg Neutrophils # POC Glucose 113 H Uric Acid 7.8 H Calcium Magnesium 7.30 H AST 49 H Alkaline Phosphatase Lactate Dehydrogenase 289 H Total Protein Albumin Urine Creatinine Ur Total Protein 24 Hr Urine Total Protein 06/05/20 06/05/20 06/05/20 11:52 12:19 17:45 WBC RDW Plt Count Lymph % (Auto) Seg Neutrophils % Seg Neutrophils # POC Glucose 106 H Uric Acid Calcium Magnesium 7.00 H 6.30 H AST Alkaline Phosphatase Lactate Dehydrogenase Total Protein Albumin Urine Creatinine Ur Total Protein 24 Hr Urine Total Protein 06/05/20 06/05/20 06/05/20 18:27 22:50 22:50 WBC RDW Plt Count Lymph % (Auto) Seg Neutrophils % Seg Neutrophils # POC Glucose 109 H Uric Acid Calcium Magnesium AST Alkaline Phosphatase Lactate Dehydrogenase Total Protein Albumin Urine Creatinine 21.4 H 21.3 H Ur Total Protein 24 Hr 1406.00 H Urine Total Protein 37 H 06/06/20 06/06/20 06/06/20 00:41 06:58 08:08 WBC 16.2 H RDW Plt Count Lymph % (Auto) 7.8 L Seg Neutrophils % 88.9 H Seg Neutrophils # 14.4 H POC Glucose 119 H 113 H Uric Acid Calcium Magnesium AST Alkaline Phosphatase Lactate Dehydrogenase Total Protein Albumin Urine Creatinine Ur Total Protein 24 Hr Urine Total Protein Laboratory Results - last 24 hr 06/05/20 06/05/20 06/05/20 06:58 07:44 07:44 WBC RBC Hgb Hct MCV MCH MCHC RDW Plt Count Lymph % (Auto) [place] % (Auto) Eos % (Auto) Baso % (Auto) Lymph # (Auto) [place] # (Auto) Eos # (Auto) Baso # (Auto) Seg Neutrophils % Seg Neutrophils # Creatinine 0.6 Estimated GFR > 60 POC Glucose 113 H Uric Acid 7.8 H Magnesium 7.30 H AST 49 H ALT 46 Lactate Dehydrogenase 289 H Urine Total Volume Urine Creatinine Height (in) Weight (lb) Creatinine Clearance Ur Total Protein 24 Hr Urine Total Protein Syphilis IgG Antibody Nonreactive Coronavirus (PCR) 06/05/20 06/05/20 06/05/20 07:44 11:52 12:19 WBC 14.6 H RBC 4.24 Hgb 12.6 Hct 37.7 MCV 89 MCH 30 MCHC 34 RDW 13.3 Plt Count 138 L Lymph % (Auto) [place] % (Auto) Eos % (Auto) Baso % (Auto) Lymph # (Auto) [place] # (Auto) Eos # (Auto) Baso # (Auto) Seg Neutrophils % Seg Neutrophils # Creatinine Estimated GFR POC Glucose 106 H Uric Acid Magnesium 7.00 H AST ALT Lactate Dehydrogenase Urine Total Volume Urine Creatinine Height (in) Weight (lb) Creatinine Clearance Ur Total Protein 24 Hr Urine Total Protein Syphilis IgG Antibody Coronavirus (PCR) 06/05/20 06/05/20 06/05/20 17:45 18:27 22:50 WBC RBC Hgb Hct MCV MCH MCHC RDW Plt Count Lymph % (Auto) [place] % (Auto) Eos % (Auto) Baso % (Auto) Lymph # (Auto) [place] # (Auto) Eos # (Auto) Baso # (Auto) Seg Neutrophils % Seg Neutrophils # Creatinine Estimated GFR POC Glucose 109 H Uric Acid Magnesium 6.30 H AST ALT Lactate Dehydrogenase Urine Total Volume 3800 Urine Creatinine 21.4 H Height (in) Weight (lb) Creatinine Clearance Ur Total Protein 24 Hr 1406.00 H Urine Total Protein 37 H Syphilis IgG Antibody Coronavirus (PCR) 06/05/20 06/05/20 06/06/20 22:50 Unknown 00:41 WBC RBC Hgb Hct MCV MCH MCHC RDW Plt Count Lymph % (Auto) [place] % (Auto) Eos % (Auto) Baso % (Auto) Lymph # (Auto) [place] # (Auto) Eos # (Auto) Baso # (Auto) Seg Neutrophils % Seg Neutrophils # Creatinine Estimated GFR POC Glucose 119 H Uric Acid Magnesium AST ALT Lactate Dehydrogenase Urine Total Volume 3800 Urine Creatinine 21.3 H Height (in) 60.0 Weight (lb) 170.0 Creatinine Clearance 93 Ur Total Protein 24 Hr Urine Total Protein Syphilis IgG Antibody Coronavirus (PCR) Negative 06/06/20 06/06/20 06:58 08:08 WBC 16.2 H RBC 3.77 Hgb 11.2 Hct 33.8 MCV 90 MCH 30 MCHC 33 RDW 13.4 Plt Count 147 Lymph % (Auto) 7.8 L [place] % (Auto) 3.2 Eos % (Auto) 0.0 Baso % (Auto) 0.1 Lymph # (Auto) 1.3 [place] # (Auto) 0.5 Eos # (Auto) 0.0 Baso # (Auto) 0.0 Seg Neutrophils % 88.9 H Seg Neutrophils # 14.4 H Creatinine Estimated GFR POC Glucose 113 H Uric Acid Magnesium AST ALT Lactate Dehydrogenase Urine Total Volume Urine Creatinine Height (in) Weight (lb) Creatinine Clearance Ur Total Protein 24 Hr Urine Total Protein Syphilis IgG Antibody Coronavirus (PCR)
[2020-06-06 09:02] LABS: Alanine Aminotransferase 29 units/L (7-56); Albumin 2.8 g/dL (3.9-5); Blood Urea Nitrogen 18 mg/dL (7-17); Calcium 6.7 mg/dL (8.4-10.2); Hemolysis Index 8
[2020-06-06 09:06] LABS: BUN/Creatinine Ratio 26
[2020-06-06] MEDS: PRENATAL VIT27-FE FUMARATE-FOLIC ACID VIT TAB PO SCH (10:54)
--- NOTE | 2020-06-07 07:52 | Progress Note ---
Assessment and Plan - Patient Problems (1) Gestational diabetes mellitus (GDM) Onset Date: ~06/06/20 Current Visit: Yes Status: Acute Qualifiers: Gestational diabetes mellitus control: diet-controlled Trimester: third trimester Qualified Code(s): O24.410 - Gestational diabetes mellitus in , diet controlled Plan to address problem: Continue with ADA diet and accuchecks. (2) 33 weeks gestation of Onset Date: ~06/06/20 Current Visit: Yes Status: Acute Plan to address problem: Continue to monitor status through EFM. (3) Pre-eclampsia, severe, third trimester Onset Date: ~06/06/20 Current Visit: Yes Status: Acute Plan to address problem: Preeclampsia with severe features: transaminitis , mild thrombocytopenia Continue to monitor for worsening HTN, distress Continue Labetalol 300mg BID , titrate to maintain BP 120-160/80-105mmhg IV Hydralazine prn SBP>160mmhg DBP>110mmhg Check CBC/CMP to follow the LFT and plt count Continue accuchecks, ADA diet Twice weekly BPP /RUY Subjective - Subjective Date of service: 06/07/20 (Pt doing well.) Principal diagnosis: IUP @ 33w4d; severe pre-e; GDM diet controlled Patient reports: movement normal, no new complaints (denies ESCOBAR, visual changes or epigastric pain), no loss of fluid, no vaginal bleeding, no contractions Objective - Vital Signs Vital Signs: Vital Signs - 12hr 06/06/20 06/06/20 06/06/20 19:55 20:00 20:05 Temperature Pulse Rate 87 88 81 Respiratory Rate Blood Pressure Blood Pressure [Left] O2 Sat by Pulse 96 96 96 Oximetry 06/06/20 06/06/20 06/06/20 20:09 20:10 20:15 Temperature Pulse Rate 77 80 78 Respiratory Rate Blood Pressure 143/90 Blood Pressure [Left] O2 Sat by Pulse 96 96 Oximetry 06/06/20 06/06/20 06/06/20 20:18 21:04 21:09 Temperature Pulse Rate 71 76 75 Respiratory Rate Blood Pressure 146/91 134/74 132/73 Blood Pressure [Left] O2 Sat by Pulse Oximetry 06/06/20 06/06/20 06/07/20 22:09 23:10 00:10 Temperature Pulse Rate 85 96 H 96 H Respiratory Rate Blood Pressure 131/75 140/75 132/74 Blood Pressure [Left] O2 Sat by Pulse Oximetry 06/07/20 06/07/20 06/07/20 01:10 02:10 03:10 Temperature Pulse Rate 88 84 74 Respiratory Rate Blood Pressure 144/74 132/74 131/76 Blood Pressure [Left] O2 Sat by Pulse Oximetry 06/07/20 06/07/20 06/07/20 04:10 05:09 06:01 Temperature 98 F Pulse Rate 80 67 72 Respiratory 16 Rate Blood Pressure 133/72 140/79 Blood Pressure 140/74 [Left] O2 Sat by Pulse Oximetry 06/07/20 06/07/20 06/07/20 06:02 06:07 06:10 Temperature Pulse Rate 72 71 67 Respiratory Rate Blood Pressure 140/74 138/72 Blood Pressure [Left] O2 Sat by Pulse 96 Oximetry 06/07/20 06/07/20 06/07/20 06:12 06:17 06:22 Temperature Pulse Rate 67 65 62 Respiratory Rate Blood Pressure Blood Pressure [Left] O2 Sat by Pulse 95 95 96 Oximetry 06/07/20 06/07/20 06/07/20 06:27 06:32 06:37 Temperature Pulse Rate 67 70 66 Respiratory Rate Blood Pressure Blood Pressure [Left] O2 Sat by Pulse 96 96 95 Oximetry 06/07/20 06/07/20 06/07/20 06:42 06:47 06:52 Temperature Pulse Rate 64 64 63 Respiratory Rate Blood Pressure Blood Pressure [Left] O2 Sat by Pulse 95 96 95 Oximetry 06/07/20 06/07/20 06/07/20 06:57 07:02 07:07 Temperature Pulse Rate 60 62 63 Respiratory Rate Blood Pressure Blood Pressure [Left] O2 Sat by Pulse 95 95 95 Oximetry 06/07/20 06/07/20 06/07/20 07:10 07:12 07:15 Temperature Pulse Rate 73 63 64 Respiratory Rate Blood Pressure 151/85 Blood Pressure [Left] O2 Sat by Pulse 95 94 Oximetry 06/07/20 06/07/20 06/07/20 07:17 07:22 07:27 Temperature Pulse Rate 61 59 L 63 Respiratory Rate Blood Pressure Blood Pressure [Left] O2 Sat by Pulse 95 96 95 Oximetry 06/07/20 06/07/20 06/07/20 07:32 07:33 07:37 Temperature Pulse Rate 70 71 64 Respiratory Rate Blood Pressure Blood Pressure [Left] O2 Sat by Pulse 95 94 95 Oximetry 06/07/20 06/07/20 07:42 07:47 Temperature Pulse Rate 70 71 Respiratory Rate Blood Pressure Blood Pressure [Left] O2 Sat by Pulse 96 96 Oximetry - Exam Narrative Exam: Pt denies ESCOBAR, blurred vision, spots before her eyes, chest pain, shortness of br eath, upper abdominal pain, ctxs, vaginal bleeding, and LOF. Discussed that if any of these symptoms occur to tell the RN immediately. Blood pressure ranges have been 130-150's/70-80's and her glucose ranges have been 89-119. Breasts: deferred Cardiovascular: Regular rate Lungs: Normal air movement Abdomen: Present: normal appearance, soft FHR: category 1 Uterine Contraction Monitor Mode: External Uterine Contraction Pattern: Absent Deep Tendon Reflex Grade: Normal but brisk +3 - Labs Labs: Abnormal Labs 06/04/20 06/04/20 06/05/20 18:30 18:30 00:59 WBC 17.4 H RDW 13.0 L Plt Count Lymph % (Auto) Seg Neutrophils % Seg Neutrophils # BUN Glucose POC Glucose Uric Acid Calcium 8.0 L Magnesium 5.90 H AST 57 H Alkaline Phosphatase 170 H Lactate Dehydrogenase Total Protein 6.0 L Albumin 3.0 L Urine Creatinine Ur Total Protein 24 Hr Urine Total Protein 06/05/20 06/05/20 06/05/20 06:58 07:44 07:44 WBC 14.6 H RDW Plt Count 138 L Lymph % (Auto) Seg Neutrophils % Seg Neutrophils # BUN Glucose POC Glucose 113 H Uric Acid 7.8 H Calcium Magnesium 7.30 H AST 49 H Alkaline Phosphatase Lactate Dehydrogenase 289 H Total Protein Albumin Urine Creatinine Ur Total Protein 24 Hr Urine Total Protein 06/05/20 06/05/20 06/05/20 11:52 12:19 17:45 WBC RDW Plt Count Lymph % (Auto) Seg Neutrophils % Seg Neutrophils # BUN Glucose POC Glucose 106 H Uric Acid Calcium Magnesium 7.00 H 6.30 H AST Alkaline Phosphatase Lactate Dehydrogenase Total Protein Albumin Urine Creatinine Ur Total Protein 24 Hr Urine Total Protein 06/05/20 06/05/20 06/05/20 18:27 22:50 22:50 WBC RDW Plt Count Lymph % (Auto) Seg Neutrophils % Seg Neutrophils # BUN Glucose POC Glucose 109 H Uric Acid Calcium Magnesium AST Alkaline Phosphatase Lactate Dehydrogenase Total Protein Albumin Urine Creatinine 21.4 H 21.3 H Ur Total Protein 24 Hr 1406.00 H Urine Total Protein 37 H 06/06/20 06/06/20 06/06/20 00:41 06:58 08:08 WBC 16.2 H RDW Plt Count Lymph % (Auto) 7.8 L Seg Neutrophils % 88.9 H Seg Neutrophils # 14.4 H BUN Glucose POC Glucose 119 H 113 H Uric Acid Calcium Magnesium AST Alkaline Phosphatase Lactate Dehydrogenase Total Protein Albumin Urine Creatinine Ur Total Protein 24 Hr Urine Total Protein 06/06/20 06/06/20 08:08 19:03 WBC RDW Plt Count Lymph % (Auto) Seg Neutrophils % Seg Neutrophils # BUN 18 H Glucose 116 H POC Glucose Uric Acid Calcium 6.7 L D Magnesium 3.60 H AST Alkaline Phosphatase 148 H Lactate Dehydrogenase Total Protein 5.7 L Albumin 2.8 L Urine Creatinine Ur Total Protein 24 Hr Urine Total Protein Laboratory Results - last 24 hr 06/06/20 06/06/20 06/06/20 08:08 08:08 15:53 WBC 16.2 H RBC 3.77 Hgb 11.2 Hct 33.8 MCV 90 MCH 30 MCHC 33 RDW 13.4 Plt Count 147 Lymph % (Auto) 7.8 L [place] % (Auto) 3.2 Eos % (Auto) 0.0 Baso % (Auto) 0.1 Lymph # (Auto) 1.3 [place] # (Auto) 0.5 Eos # (Auto) 0.0 Baso # (Auto) 0.0 Seg Neutrophils % 88.9 H Seg Neutrophils # 14.4 H Sodium 137 Potassium 4.1 Chloride 106.0 Carbon Dioxide 23 Anion Gap 12 BUN 18 H Creatinine 0.7 Estimated GFR > 60 BUN/Creatinine Ratio 26 Glucose 116 H POC Glucose 99 Calcium 6.7 L D Magnesium Total Bilirubin 0.20 AST 24 ALT 29 Alkaline Phosphatase 148 H Total Protein 5.7 L Albumin 2.8 L Albumin/Globulin Ratio 1.0 06/06/20 06/06/20 19:03 19:47 WBC RBC Hgb Hct MCV MCH MCHC RDW Plt Count Lymph % (Auto) [place] % (Auto) Eos % (Auto) Baso % (Auto) Lymph # (Auto) [place] # (Auto) Eos # (Auto) Baso # (Auto) Seg Neutrophils % Seg Neutrophils # Sodium Potassium Chloride Carbon Dioxide Anion Gap BUN Creatinine Estimated GFR BUN/Creatinine Ratio Glucose POC Glucose 89 Calcium Magnesium 3.60 H Total Bilirubin AST ALT Alkaline Phosphatase Total Protein Albumin Albumin/Globulin Ratio
[2020-06-07] MEDS: PRENATAL VIT27-FE FUMARATE-FOLIC ACID VIT TAB PO SCH (10:45)
--- NOTE | 2020-06-07 11:09 | Ultrasound Report ---
ULTRASOUND OBSTETRIC LIMITED ULTRASOUND BIOPHYSICAL PROFILE INDICATION / CLINICAL INFORMATION: wellbeing . Clinical Gestational Age (GA): 33.4 weeks.days COMPARISON: 06/05/2020. FINDINGS: BREATHING MOVEMENT = 2 GROSS BODY MOVEMENT = 2 TONE = 2 QUALITATIVE AMNIOTIC FLUID VOLUME = 2 TOTAL BIOPHYSICAL SCORE = 8/8 HEART RATE (beats per minute): 132 AMNIOTIC FLUID INDEX (cm) = 14.7 (normal = 7-24 cm) PRESENTATION: Cephalic. ADDITIONAL FINDINGS: None. IMPRESSION: 1. Biophysical Score = 8/8 2. Single living intrauterine gestation in cephalic position. No significant sonographic abnormality. Signer Name: Iban Canchola MD Signed: 06/07/2020 11:04 AM Workstation Name: [id number]
[2020-06-08] MEDS: hydrALAZINE 20 MG/1 ML INJ IV PRN ×2 (05:39→17:18)
[2020-06-08 07:14] LABS: Hematocrit 33.8 % (30.3-42.9); Hemoglobin 11.3 gm/dl (10.1-14.3); Mean Corpuscular HGB Conc 34 % (30-34); Mean Corpuscular Volume 90 fl (79-97); Platelet Count 156 K/mm3 (140-440); Red Blood Count 3.75 M/mm3 (3.65-5.03); Red Cell Distribution Width 13.1 % (13.2-15.2)
[2020-06-08 07:44] LABS: Alanine Aminotransferase 321 units/L (7-56); Uric Acid 9.9 mg/dL (3.5-7.6)
[2020-06-08] MEDS: PRENATAL VIT27-FE FUMARATE-FOLIC ACID VIT TAB PO SCH (10:34)
--- NOTE | 2020-06-08 11:48 | Progress Note ---
Assessment and Plan - Patient Problems (1) 33 weeks gestation of Onset Date: ~06/06/20 Current Visit: Yes Status: Acute (2) Gestational diabetes mellitus (GDM) Onset Date: ~06/06/20 Current Visit: Yes Status: Acute Qualifiers: Gestational diabetes mellitus control: diet-controlled Trimester: third trimester Qualified Code(s): O24.410 - Gestational diabetes mellitus in , diet controlled (3) Pre-eclampsia, severe, third trimester Onset Date: ~06/06/20 Current Visit: Yes Status: Acute Plan to address problem: Initiation of delivery today is recommended secondary to HELLP syndrome at this advanced gestational age. The risks of expectant management appear to exceed the risks associated with prematurity. Repeat preeclampsia labs now. Initiate magnesium sulfate now for maternal neuroprotection. I have discussed the above with Dr. Collazo. Subjective - Subjective Date of service: 06/08/20 Principal diagnosis: IUP @ 33w4d; severe pre-e; GDM diet controlled Patient reports: movement normal (Denies s/s of preeclampsia), no new complaints (denies ESCOBAR, visual changes or epigastric pain), no loss of fluid, no vaginal bleeding, no contractions Objective - Vital Signs Vital Signs: Vital Signs - 12hr 06/07/20 06/07/20 06/07/20 23:47 23:52 23:55 Temperature Pulse Rate 72 71 67 Respiratory Rate Blood Pressure Blood Pressure [Left] O2 Sat by Pulse 95 95 94 Oximetry 06/07/20 06/08/20 06/08/20 23:57 00:02 00:03 Temperature Pulse Rate 66 72 68 Respiratory Rate Blood Pressure Blood Pressure [Left] O2 Sat by Pulse 95 96 94 Oximetry 06/08/20 06/08/20 06/08/20 00:07 00:11 00:12 Temperature Pulse Rate 72 64 76 Respiratory Rate Blood Pressure Blood Pressure [Left] O2 Sat by Pulse 95 94 95 Oximetry 06/08/20 06/08/20 06/08/20 00:13 00:17 00:22 Temperature Pulse Rate 70 65 68 Respiratory Rate Blood Pressure 153/78 Blood Pressure [Left] O2 Sat by Pulse 95 95 Oximetry 06/08/20 06/08/20 06/08/20 00:25 00:27 00:30 Temperature Pulse Rate 68 69 67 Respiratory Rate Blood Pressure Blood Pressure [Left] O2 Sat by Pulse 94 95 94 Oximetry 06/08/20 06/08/20 06/08/20 00:32 00:36 00:37 Temperature Pulse Rate 66 67 63 Respiratory Rate Blood Pressure Blood Pressure [Left] O2 Sat by Pulse 94 94 95 Oximetry 06/08/20 06/08/20 06/08/20 00:41 00:42 00:46 Temperature Pulse Rate 64 67 67 Respiratory Rate Blood Pressure Blood Pressure [Left] O2 Sat by Pulse 94 95 94 Oximetry 06/08/20 06/08/20 06/08/20 00:47 00:52 00:57 Temperature Pulse Rate 69 72 74 Respiratory Rate Blood Pressure Blood Pressure [Left] O2 Sat by Pulse 95 94 95 Oximetry 06/08/20 06/08/20 06/08/20 00:59 01:02 01:04 Temperature Pulse Rate 67 66 72 Respiratory Rate Blood Pressure Blood Pressure [Left] O2 Sat by Pulse 94 94 94 Oximetry 06/08/20 06/08/20 06/08/20 01:07 01:10 01:12 Temperature Pulse Rate 60 66 77 Respiratory Rate Blood Pressure Blood Pressure [Left] O2 Sat by Pulse 94 94 95 Oximetry 06/08/20 06/08/20 06/08/20 01:13 01:15 01:17 Temperature Pulse Rate 74 68 67 Respiratory Rate Blood Pressure 159/79 Blood Pressure [Left] O2 Sat by Pulse 94 94 Oximetry 06/08/20 06/08/20 06/08/20 01:21 01:22 01:27 Temperature Pulse Rate 73 86 67 Respiratory Rate Blood Pressure Blood Pressure [Left] O2 Sat by Pulse 94 96 95 Oximetry 06/08/20 06/08/20 06/08/20 01:34 01:39 01:41 Temperature Pulse Rate 87 63 62 Respiratory Rate Blood Pressure Blood Pressure [Left] O2 Sat by Pulse 95 94 94 Oximetry 06/08/20 06/08/20 06/08/20 01:44 01:47 01:49 Temperature Pulse Rate 65 72 69 Respiratory Rate Blood Pressure Blood Pressure [Left] O2 Sat by Pulse 94 94 95 Oximetry 06/08/20 06/08/20 06/08/20 01:54 01:59 02:02 Temperature Pulse Rate 65 69 67 Respiratory Rate Blood Pressure Blood Pressure [Left] O2 Sat by Pulse 95 96 94 Oximetry 06/08/20 06/08/20 06/08/20 02:04 02:08 02:09 Temperature Pulse Rate 69 64 63 Respiratory Rate Blood Pressure Blood Pressure [Left] O2 Sat by Pulse 96 94 95 Oximetry 06/08/20 06/08/20 06/08/20 02:13 02:14 02:16 Temperature Pulse Rate 72 69 66 Respiratory Rate Blood Pressure 165/81 Blood Pressure [Left] O2 Sat by Pulse 95 94 Oximetry 06/08/20 06/08/20 06/08/20 02:19 02:24 02:26 Temperature Pulse Rate 67 64 67 Respiratory Rate Blood Pressure Blood Pressure [Left] O2 Sat by Pulse 95 95 94 Oximetry 06/08/20 06/08/20 06/08/20 02:29 02:32 02:34 Temperature Pulse Rate 65 65 66 Respiratory Rate Blood Pressure Blood Pressure [Left] O2 Sat by Pulse 95 94 94 Oximetry 06/08/20 06/08/20 06/08/20 02:37 02:39 02:44 Temperature Pulse Rate 68 65 67 Respiratory Rate Blood Pressure Blood Pressure [Left] O2 Sat by Pulse 94 95 94 Oximetry 06/08/20 06/08/20 06/08/20 02:49 02:53 02:54 Temperature Pulse Rate 64 65 63 Respiratory Rate Blood Pressure Blood Pressure [Left] O2 Sat by Pulse 94 94 94 Oximetry 06/08/20 06/08/20 06/08/20 02:59 03:04 03:09 Temperature Pulse Rate 64 70 61 Respiratory Rate Blood Pressure Blood Pressure [Left] O2 Sat by Pulse 94 94 94 Oximetry 06/08/20 06/08/20 06/08/20 03:13 03:14 03:15 Temperature Pulse Rate 80 68 71 Respiratory Rate Blood Pressure 164/85 Blood Pressure [Left] O2 Sat by Pulse 95 94 Oximetry 06/08/20 06/08/20 06/08/20 03:19 03:21 03:24 Temperature Pulse Rate 63 63 60 Respiratory Rate Blood Pressure Blood Pressure [Left] O2 Sat by Pulse 95 94 94 Oximetry 06/08/20 06/08/20 06/08/20 03:29 03:30 03:34 Temperature Pulse Rate 69 68 71 Respiratory Rate Blood Pressure Blood Pressure [Left] O2 Sat by Pulse 95 94 94 Oximetry 06/08/20 06/08/20 06/08/20 03:37 03:39 03:44 Temperature Pulse Rate 60 91 H 68 Respiratory Rate Blood Pressure Blood Pressure [Left] O2 Sat by Pulse 94 94 95 Oximetry 06/08/20 06/08/20 06/08/20 03:48 03:49 03:54 Temperature Pulse Rate 63 62 68 Respiratory Rate Blood Pressure Blood Pressure [Left] O2 Sat by Pulse 94 95 95 Oximetry 06/08/20 06/08/20 06/08/20 03:57 03:59 04:02 Temperature Pulse Rate 66 60 64 Respiratory Rate Blood Pressure Blood Pressure [Left] O2 Sat by Pulse 94 95 94 Oximetry 06/08/20 06/08/20 06/08/20 04:04 04:09 04:13 Temperature Pulse Rate 67 64 77 Respiratory Rate Blood Pressure 158/82 Blood Pressure [Left] O2 Sat by Pulse 94 94 Oximetry 06/08/20 06/08/20 06/08/20 04:14 04:19 04:24 Temperature Pulse Rate 82 79 69 Respiratory Rate Blood Pressure Blood Pressure [Left] O2 Sat by Pulse 94 95 95 Oximetry 06/08/20 06/08/20 06/08/20 04:29 04:31 04:34 Temperature Pulse Rate 72 67 68 Respiratory Rate Blood Pressure Blood Pressure [Left] O2 Sat by Pulse 95 94 95 Oximetry 06/08/20 06/08/20 06/08/20 04:42 04:46 04:47 Temperature Pulse Rate 95 H 74 65 Respiratory Rate Blood Pressure Blood Pressure [Left] O2 Sat by Pulse 96 94 95 Oximetry 06/08/20 06/08/20 06/08/20 04:52 04:57 05:02 Temperature Pulse Rate 67 68 69 Respiratory Rate Blood Pressure Blood Pressure [Left] O2 Sat by Pulse 96 96 96 Oximetry 06/08/20 06/08/20 06/08/20 05:07 05:12 05:13 Temperature Pulse Rate 71 79 77 Respiratory Rate Blood Pressure 168/86 Blood Pressure [Left] O2 Sat by Pulse 96 96 Oximetry 06/08/20 06/08/20 06/08/20 05:17 05:18 05:22 Temperature Pulse Rate 74 71 68 Respiratory Rate Blood Pressure Blood Pressure [Left] O2 Sat by Pulse 96 94 95 Oximetry 06/08/20 06/08/20 06/08/20 05:27 05:28 05:30 Temperature Pulse Rate 61 92 H 73 Respiratory Rate Blood Pressure 172/79 Blood Pressure [Left] O2 Sat by Pulse 95 94 Oximetry 06/08/20 06/08/20 06/08/20 05:32 05:37 05:39 Temperature Pulse Rate 65 67 78 Respiratory Rate Blood Pressure 172/79 Blood Pressure [Left] O2 Sat by Pulse 96 96 Oximetry 06/08/20 06/08/20 06/08/20 05:40 05:42 05:47 Temperature 98.3 F Pulse Rate 74 95 H Respiratory 16 Rate Blood Pressure Blood Pressure [Left] O2 Sat by Pulse 96 96 Oximetry 06/08/20 06/08/20 06/08/20 05:49 05:52 05:57 Temperature Pulse Rate 90 98 H 90 Respiratory Rate Blood Pressure 140/75 Blood Pressure [Left] O2 Sat by Pulse 97 97 Oximetry 06/08/20 06/08/20 06/08/20 06:02 06:04 06:07 Temperature Pulse Rate 88 90 85 Respiratory Rate Blood Pressure 130/70 Blood Pressure [Left] O2 Sat by Pulse 97 96 Oximetry 06/08/20 06/08/20 06/08/20 06:12 06:17 06:19 Temperature Pulse Rate 85 88 82 Respiratory Rate Blood Pressure 127/70 Blood Pressure [Left] O2 Sat by Pulse 96 97 Oximetry 06/08/20 06/08/20 06/08/20 06:23 06:28 06:33 Temperature Pulse Rate 101 H 86 80 Respiratory Rate Blood Pressure Blood Pressure [Left] O2 Sat by Pulse 96 97 97 Oximetry 06/08/20 06/08/20 06/08/20 06:34 06:38 06:43 Temperature Pulse Rate 78 85 77 Respiratory Rate Blood Pressure 124/70 Blood Pressure [Left] O2 Sat by Pulse 96 96 Oximetry 06/08/20 06/08/20 06/08/20 06:48 06:49 06:53 Temperature Pulse Rate 84 85 79 Respiratory Rate Blood Pressure 131/75 Blood Pressure [Left] O2 Sat by Pulse 97 97 Oximetry 06/08/20 06/08/20 06/08/20 06:58 07:03 07:04 Temperature Pulse Rate 86 85 80 Respiratory Rate Blood Pressure 132/75 Blood Pressure [Left] O2 Sat by Pulse 97 97 Oximetry 06/08/20 06/08/20 06/08/20 07:08 07:13 07:18 Temperature Pulse Rate 82 78 74 Respiratory Rate Blood Pressure Blood Pressure [Left] O2 Sat by Pulse 97 97 97 Oximetry 06/08/20 06/08/20 06/08/20 07:19 07:23 07:28 Temperature Pulse Rate 87 85 87 Respiratory Rate Blood Pressure 140/79 Blood Pressure [Left] O2 Sat by Pulse 96 96 Oximetry 06/08/20 06/08/20 06/08/20 07:33 07:34 07:38 Temperature Pulse Rate 80 75 82 Respiratory Rate Blood Pressure 134/78 Blood Pressure [Left] O2 Sat by Pulse 96 96 Oximetry 06/08/20 06/08/20 06/08/20 07:43 07:48 07:49 Temperature Pulse Rate 80 82 78 Respiratory Rate Blood Pressure 138/84 Blood Pressure [Left] O2 Sat by Pulse 96 96 Oximetry 06/08/20 06/08/20 06/08/20 07:53 07:58 08:03 Temperature Pulse Rate 79 78 82 Respiratory Rate Blood Pressure Blood Pressure [Left] O2 Sat by Pulse 96 97 97 Oximetry 06/08/20 06/08/20 06/08/20 08:04 08:08 08:13 Temperature Pulse Rate 76 83 78 Respiratory Rate Blood Pressure 138/86 Blood Pressure [Left] O2 Sat by Pulse 97 96 Oximetry 06/08/20 06/08/20 06/08/20 08:18 08:19 08:23 Temperature Pulse Rate 74 87 73 Respiratory Rate Blood Pressure 145/87 Blood Pressure [Left] O2 Sat by Pulse 96 96 Oximetry 06/08/20 06/08/20 06/08/20 08:28 08:33 08:34 Temperature 98.1 F Pulse Rate 80 87 88 Respiratory 18 Rate Blood Pressure 141/88 145/89 Blood Pressure 141/88 [Left] O2 Sat by Pulse 96 96 Oximetry 06/08/20 06/08/20 06/08/20 08:38 08:48 08:53 Temperature Pulse Rate 90 86 81 Respiratory Rate Blood Pressure Blood Pressure [Left] O2 Sat by Pulse 96 97 97 Oximetry 06/08/20 06/08/20 06/08/20 08:58 09:03 09:06 Temperature Pulse Rate 86 89 83 Respiratory Rate Blood Pressure 132/77 Blood Pressure [Left] O2 Sat by Pulse 97 97 Oximetry 06/08/20 06/08/20 06/08/20 09:08 09:13 09:18 Temperature Pulse Rate 85 93 H 79 Respiratory Rate Blood Pressure Blood Pressure [Left] O2 Sat by Pulse 97 97 96 Oximetry 06/08/20 06/08/20 06/08/20 09:23 09:28 09:33 Temperature Pulse Rate 83 79 76 Respiratory Rate Blood Pressure Blood Pressure [Left] O2 Sat by Pulse 97 96 96 Oximetry 06/08/20 06/08/20 06/08/20 09:36 09:38 09:43 Temperature Pulse Rate 92 H 75 75 Respiratory Rate Blood Pressure 141/82 Blood Pressure [Left] O2 Sat by Pulse 96 96 Oximetry 06/08/20 06/08/20 06/08/20 09:48 09:53 09:58 Temperature Pulse Rate 76 74 76 Respiratory Rate Blood Pressure Blood Pressure [Left] O2 Sat by Pulse 96 96 96 Oximetry 06/08/20 06/08/20 06/08/20 10:03 10:06 10:08 Temperature Pulse Rate 80 89 80 Respiratory Rate Blood Pressure 150/82 Blood Pressure [Left] O2 Sat by Pulse 97 96 Oximetry 06/08/20 06/08/20 06/08/20 10:13 10:18 10:23 Temperature Pulse Rate 82 105 H 71 Respiratory Rate Blood Pressure Blood Pressure [Left] O2 Sat by Pulse 97 98 96 Oximetry 06/08/20 06/08/20 06/08/20 10:28 10:33 10:34 Temperature Pulse Rate 75 90 89 Respiratory Rate Blood Pressure 150/82 Blood Pressure [Left] O2 Sat by Pulse 96 96 Oximetry 06/08/20 06/08/20 06/08/20 10:35 10:36 10:38 Temperature Pulse Rate 89 81 82 Respiratory Rate Blood Pressure 150/82 141/83 Blood Pressure [Left] O2 Sat by Pulse 96 Oximetry 06/08/20 06/08/20 06/08/20 10:43 10:48 10:53 Temperature Pulse Rate 93 H 79 82 Respiratory Rate Blood Pressure Blood Pressure [Left] O2 Sat by Pulse 97 96 95 Oximetry 06/08/20 06/08/20 06/08/20 10:58 11:03 11:06 Temperature Pulse Rate 87 80 76 Respiratory Rate Blood Pressure 138/77 Blood Pressure [Left] O2 Sat by Pulse 96 96 Oximetry 06/08/20 06/08/20 06/08/20 11:08 11:16 11:21 Temperature Pulse Rate 85 87 79 Respiratory Rate Blood Pressure Blood Pressure [Left] O2 Sat by Pulse 96 95 96 Oximetry 06/08/20 06/08/20 06/08/20 11:26 11:31 11:36 Temperature Pulse Rate 86 75 82 Respiratory Rate Blood Pressure 165/90 Blood Pressure [Left] O2 Sat by Pulse 96 96 97 Oximetry 06/08/20 11:41 Temperature Pulse Rate 82 Respiratory Rate Blood Pressure Blood Pressure [Left] O2 Sat by Pulse 97 Oximetry - Exam FHR: category 1 (Reactive) - Labs Labs: Abnormal Labs 06/04/20 06/04/20 06/05/20 18:30 18:30 00:59 WBC 17.4 H RDW 13.0 L Plt Count Lymph % (Auto) Seg Neutrophils % Seg Neutrophils # BUN Glucose POC Glucose Uric Acid Calcium 8.0 L Magnesium 5.90 H AST 57 H ALT Alkaline Phosphatase 170 H Lactate Dehydrogenase Total Protein 6.0 L Albumin 3.0 L Urine Creatinine Ur Total Protein 24 Hr Urine Total Protein 06/05/20 06/05/20 06/05/20 06:58 07:44 07:44 WBC 14.6 H RDW Plt Count 138 L Lymph % (Auto) Seg Neutrophils % Seg Neutrophils # BUN Glucose POC Glucose 113 H Uric Acid 7.8 H Calcium Magnesium 7.30 H AST 49 H ALT Alkaline Phosphatase Lactate Dehydrogenase 289 H Total Protein Albumin Urine Creatinine Ur Total Protein 24 Hr Urine Total Protein 06/05/20 06/05/20 06/05/20 11:52 12:19 17:45 WBC RDW Plt Count Lymph % (Auto) Seg Neutrophils % Seg Neutrophils # BUN Glucose POC Glucose 106 H Uric Acid Calcium Magnesium 7.00 H 6.30 H AST ALT Alkaline Phosphatase Lactate Dehydrogenase Total Protein Albumin Urine Creatinine Ur Total Protein 24 Hr Urine Total Protein 06/05/20 06/05/20 06/05/20 18:27 22:50 22:50 WBC RDW Plt Count Lymph % (Auto) Seg Neutrophils % Seg Neutrophils # BUN Glucose POC Glucose 109 H Uric Acid Calcium Magnesium AST ALT Alkaline Phosphatase Lactate Dehydrogenase Total Protein Albumin Urine Creatinine 21.4 H 21.3 H Ur Total Protein 24 Hr 1406.00 H Urine Total Protein 37 H 06/06/20 06/06/20 06/06/20 00:41 06:58 08:08 WBC 16.2 H RDW Plt Count Lymph % (Auto) 7.8 L Seg Neutrophils % 88.9 H Seg Neutrophils # 14.4 H BUN Glucose POC Glucose 119 H 113 H Uric Acid Calcium Magnesium AST ALT Alkaline Phosphatase Lactate Dehydrogenase Total Protein Albumin Urine Creatinine Ur Total Protein 24 Hr Urine Total Protein 06/06/20 06/06/20 06/07/20 08:08 19:03 07:40 WBC RDW Plt Count Lymph % (Auto) Seg Neutrophils % Seg Neutrophils # BUN 18 H Glucose 116 H POC Glucose Uric Acid Calcium 6.7 L D 7.1 L Magnesium 3.60 H AST ALT Alkaline Phosphatase 148 H Lactate Dehydrogenase Total Protein 5.7 L Albumin 2.8 L Urine Creatinine Ur Total Protein 24 Hr Urine Total Protein 06/08/20 06/08/20 06/08/20 05:45 06:46 06:46 WBC 15.5 H RDW 13.1 L Plt Count Lymph % (Auto) Seg Neutrophils % Seg Neutrophils # BUN Glucose POC Glucose 58 L Uric Acid 9.9 H Calcium Magnesium AST 237 H ALT 321 H Alkaline Phosphatase Lactate Dehydrogenase 469 H Total Protein Albumin Urine Creatinine Ur Total Protein 24 Hr Urine Total Protein Laboratory Results - last 24 hr 06/07/20 06/07/20 06/08/20 15:45 20:11 05:45 WBC RBC Hgb Hct MCV MCH MCHC RDW Plt Count Creatinine Estimated GFR POC Glucose 70 71 58 L Uric Acid AST ALT Lactate Dehydrogenase 06/08/20 06/08/20 06/08/20 06:46 06:46 07:02 WBC 15.5 H RBC 3.75 Hgb 11.3 Hct 33.8 MCV 90 MCH 30 MCHC 34 RDW 13.1 L Plt Count 156 Creatinine 0.7 Estimated GFR > 60 POC Glucose 78 Uric Acid 9.9 H AST 237 H ALT 321 H Lactate Dehydrogenase 469 H 06/08/20 10:43 WBC RBC Hgb Hct MCV MCH MCHC RDW Plt Count Creatinine Estimated GFR POC Glucose 86 Uric Acid AST ALT Lactate Dehydrogenase
[2020-06-08] MEDS ORDERED: OXYTOCIN DRIP 30,000 MILLIUNITS/500 ML BAG IV ONE (12:07)
[2020-06-08] MEDS ORDERED: MAGNESIUM SULFATE 4 GM/100 ML BAG IV ONE ×2 (12:09)
[2020-06-08] MEDS ORDERED: MAGNESIUM SULFATE 40GM/1000ML 40 GM/1,000 ML BAG IV SCH (13:30)
--- NOTE | 2020-06-08 13:39 | Event Note ---
Date: 06/08/20 Appreciate perinatology's help. Discussed with the patient her diagnosis and indication for induction. All her questions were answered. Discussed with the patient the nature of serial induction. Questions answered. Discussed the risks of and. indications for operative intervention. Discussed the nature of induction with starting Pitocin. Patient at this point denies any signs or symptoms of preeclampsia. Will reassess this evening for possible continue Pitocin versus possible placement of Cervidil if patient is stable.
[2020-06-08] MEDS: LACTATED RINGERS 1,000 ML IV SCH (14:22)
--- NOTE | 2020-06-08 18:20 | Event Note ---
Date: 06/08/20 Patient with increasing blood pressures. Contacted patient via phone to discuss the diagnosis of HELLP syndrome. In light of patient with an increasing blood pressures with diastolics being in severe range and patient with a significant increase in her liver function enzymes, appears appears that the patient is moving toward HELLP syndrome. Discussed with patient that right now she is not in for blown syndrome but appears to be tending toward that and the risk possible can continue with induction with the patient being remote for delivery and discussed the indication for section and the risks of the surgery. Patient informed the risks of the surgery include bleeding possibly bleeding heavy enough to require blood transfusion, infection possible damage to bowel bladder ureter. All questions answered. Patient does desire to proceed with section versus continue with labor induction.
--- NOTE | 2020-06-08 18:39 | Anesthesia Day of Surgery ---
Anesthesia Day of Surgery - Day of Surgery Patient Examined: Yes Patient H&P Reviewed: Yes Patient is NPO: Yes Beta Blockers: Yes Cardiac Clearance: No Pulmonary Clearance: No Mj's Test: N/A
[2020-06-08] MEDS ORDERED: ONDANSETRON 4 MG/2 ML INJ IV PRN (18:42)
[2020-06-08] MEDS ORDERED: NALOXONE 0.4 MG/1 ML INJ IV PRN (18:42)
--- NOTE | 2020-06-08 18:42 | Anesthesia Consultation ---
Anesthesia Consult and Med Hx Date of service: 06/08/20 - Airway Anesthetic Teeth Evaluation: Good ROM Head & Neck: Adequate Mental/Hyoid Distance: Adequate Mallampati Class: Class III Intubation Access Assessment: Probably Good - Pulmonary Exam CTA: Yes - Cardiac Exam Cardiac Exam: RRR - Pre-Operative Health Status ASA Pre-Surgery Classification: ASA3 Proposed Anesthetic Plan: Spinal - Pulmonary Hx Smoking: No Hx Asthma: No Hx Respiratory Symptoms: No SOB: No COPD: No Home Oxygen Therapy: No Hx Pneumonia: No Hx Sleep Apnea: No - Cardiovascular System Hx Hypertension: Yes Hx Coronary Artery Disease: No Hx Heart Attack/AMI: No Hx Angina: No Hx Percutaneous Transluminal Coronary Angioplasty (PTCA): No Hx Cardia Arrhythmia: No Hx Pacemaker: No Hx Internal Defibrillator: No Hx Valvular Heart Disease: No Hx Heart Murmur: No Hx Peripheral Vascular Disease: No - Central Nervous System Hx Neuromuscular Disorder: No Hx Seizures: No CVA: No Hx Back Pain: No Hx Psychiatric Problems: No - Gastrointestinal Hx Ulcer: No Hx Gastroesophageal Reflux Disease: Yes - Endocrine Hx Renal Disease: No Hx End Stage Renal Disease: No Hx Cirrhosis: No Hx Liver Disease: No Hx Insulin Dependent Diabetes: No Hx Non-Insulin Dependent Diabetes: Yes (geatational) Hx Thyroid Disease: No Hx Hypothyroidism: No Hx Hyperthyroidism: No - Hematic Hx Anemia: No Hx Sickle Cell Disease: No - Other Systems Hx Alcohol Use: No Hx Substance Use: No Hx Cancer: No Hx Obesity: Yes
[2020-06-08] MEDS ORDERED: MORPHINE PF 10MG/10 ML AMPULE ONE (18:46)
[2020-06-08] MEDS ORDERED: ONDANSETRON 4 MG/2 ML INJ ONE ×2 (18:51)
[2020-06-08] MEDS ORDERED: METOCLOPRAMIDE 10 MG/2 ML INJ ONE (19:20)
[2020-06-08] MEDS ORDERED: FAMOTIDINE 20 MG/2 ML INJ IV ONE ×2 (19:20→19:27)
[2020-06-08] MEDS ORDERED: BICITRA ORAL LIQD 30ML ONE (19:20)
[2020-06-08] MEDS ORDERED: ceFAZolin/Water 2 GM/20 ML 2 GM/20 ML SYRINGE IV ONE (19:21)
[2020-06-08] MEDS ORDERED: BICITRA ORAL LIQD 30ML PO ONE (19:27)
[2020-06-08] MEDS ORDERED: METOCLOPRAMIDE 10 MG/2 ML INJ IV ONE (19:27)
[2020-06-08] MEDS ORDERED: ceFAZolin/Water 2 GM/20 ML 2 GM/20 ML SYRINGE IV NR (20:00)
[2020-06-08] MEDS ORDERED: OXYTOCIN DRIP 30 UNITS/500 ML BAG IV SCH (20:00)
[2020-06-08] MEDS ORDERED: SODIUM CHLORIDE 0.9% 500 ML 500 ML ONE (20:03)
[2020-06-08] MEDS ORDERED: WATER FOR IRRIG STERILE 1,500 ML BOTTLE IR ONE (20:14)
[2020-06-08] MEDS ORDERED: SODIUM CHLORIDE 0.9% IRR 1,500 ML BOTTLE IR ONE (20:14)
[2020-06-08] MEDS ORDERED: ceFAZolin/STERILE WATER 2 GM/20 ML SYRINGE IV ONE (20:14)
[2020-06-08] MEDS ORDERED: PHENYLEPHRINE/NS 1,000 MCG/10 ML SYRINGE (OR USE) IV ONE (20:23)
[2020-06-08] MEDS ORDERED: dexAMETHasone 20 MG/5 ML VIAL ONE (20:38)
[2020-06-08] MEDS ORDERED: BUPIVACAINE/PF (0.5%) 5 MG/1 ML 30 ML VIAL INFILTRATI ONE (20:38)
[2020-06-08] MEDS ORDERED: SODIUM CHLORIDE 0.9% 100 ML ONE (20:38)
[2020-06-08] MEDS ORDERED: KETOROLAC 30 MG/1 ML INJ ONE (20:46)
--- NOTE | 2020-06-08 20:59 | Operative Report ---
Operative Report Operative Report: Date of procedure: June 08, 2020 Pre-operative diagnosis: Intrauterine at 32 weeks and 5 days with gestational diabetes and severe preeclampsia possible help syndrome and remote from vaginal delivery Post-operative diagnosis: Same plus leiomyomata Procedure name(s): Primary low-transverse section Surgeon: Jesse Collazo MD Production Laborer: BERNICE Anesthesia: Spinal EBL: 900 cc Complications: None Findings: Patient with uterus was a small leiomyomata posterior approximately 2 cm normal tubes and ovaries bilaterally. Male infant weight 4 pounds 4 ounces with Apgars 8 at 1 minute and 9 at 5 minutes Specimen(s): Placenta Procedure: The patient was brought to the operating room. Her spinal was placed without any complications. She was then placed in left lateral tilt. Prepped and draped in the usual sterile manner. After testing for adequate anesthesia level, a Pfannenstiel incision was made. This incision was taken down to the fascia. The fascia was then nicked in the midline. This incision was extended out laterally with Austin scissors. The fascia was then sharply and bluntly from the underlying rectus muscles. The rectus muscles were bluntly and sharply . The peritoneum was then entered with the well flow operator's fingers. This incision was spread vertically with care not to damage the bladder below. The Domingo self-retaining tractor was then placed without any difficulty. The bladder flap was then formed sharply and bluntly with Metzenbaum scissors. A transverse incision was made in lower uterine segment. This incision was extended laterally with the operators fingers. The amniotic sac was then entered bluntly with the well flow operator's fingers. The infant was delivered from the vertex position. Bulb suction on the mother's abdomen. Cord was double clamped and cut. The was then passed to the nursery personnel who were in attendance. The above scores were given by the nursery personnel. The placenta was then bluntly removed. The uterus was then externalized and wiped clean the remaining products. The uterine incision was closed in layers. The first incision was closed in a locking manner using 0 Vicryl. This was followed by imbricating stitch also with 0 Vicryl. This closure was hemostatic. The bladder flap was copiously irrigated and found to be hemostatic. The pelvis was copiously irrigated and found to be hemostatic. The uterus was then placed back to the patient's abdomen. The retractors were removed. The rectus muscles were inspected and found to be hemostatic. The fascia was then closed in a running manner using 0 Vicryl. This incision was hemostatic irrigation Bovie. The skin was reapproximated with 4-0 Vicryl subcuticularly. The patient tolerated procedure well. Her urine was clear. The was admitted to the intensive care nursery. The patient was accompanied to recovery room in good condition. Instrument count correct times 3.
--- NOTE | 2020-06-08 22:45 | Progress Note ---
Spinal Anesthesia Block - Spinal Anesthesia Block Procedure: Patient IDed, H&P reviewed, all questions and concerns were answered, and consent was signed. Timeout was performed at bedside. Patient in sitting position. Sterile prep and drape was performed. [3] ml of 1% lidocaine skin wheal at L[3]- L [4]. Needle introducer advanced. 25 gauge spinal needle advanced. Clear, free flowing CSF. negative blood, negative paresthesia. Spinal dose given. All needles removed. Patient tolerated procedure.
--- NOTE | 2020-06-08 22:53 | Progress Note ---
Subjective Principal diagnosis: IUP @ 33w4d; severe pre-e; GDM diet controlled Objective - Constitutional Vitals: Vital Signs - 12hr 06/08/20 06/08/20 06/08/20 10:53 10:58 11:03 Temperature Pulse Rate 82 87 80 Respiratory Rate Blood Pressure Blood Pressure [Left] O2 Sat by Pulse 95 96 96 Oximetry 06/08/20 06/08/20 06/08/20 11:06 11:08 11:16 Temperature Pulse Rate 76 85 87 Respiratory Rate Blood Pressure 138/77 Blood Pressure [Left] O2 Sat by Pulse 96 95 Oximetry 06/08/20 06/08/20 06/08/20 11:21 11:26 11:31 Temperature Pulse Rate 79 86 75 Respiratory Rate Blood Pressure Blood Pressure [Left] O2 Sat by Pulse 96 96 96 Oximetry 06/08/20 06/08/20 06/08/20 11:36 11:41 11:46 Temperature Pulse Rate 82 82 84 Respiratory Rate Blood Pressure 165/90 Blood Pressure [Left] O2 Sat by Pulse 97 97 97 Oximetry 06/08/20 06/08/20 06/08/20 11:51 11:56 12:01 Temperature Pulse Rate 95 H 89 79 Respiratory Rate Blood Pressure Blood Pressure [Left] O2 Sat by Pulse 96 95 96 Oximetry 06/08/20 06/08/20 06/08/20 12:06 12:11 12:29 Temperature Pulse Rate 86 90 82 Respiratory Rate Blood Pressure 146/83 Blood Pressure [Left] O2 Sat by Pulse 96 95 96 Oximetry 06/08/20 06/08/20 06/08/20 12:34 12:39 12:41 Temperature Pulse Rate 83 84 80 Respiratory Rate Blood Pressure Blood Pressure [Left] O2 Sat by Pulse 96 96 92 Oximetry 06/08/20 06/08/20 06/08/20 12:42 12:44 12:49 Temperature Pulse Rate 79 90 89 Respiratory Rate Blood Pressure 161/84 Blood Pressure [Left] O2 Sat by Pulse 96 96 Oximetry 06/08/20 06/08/20 06/08/20 12:54 12:59 13:03 Temperature Pulse Rate 81 85 82 Respiratory Rate Blood Pressure Blood Pressure [Left] O2 Sat by Pulse 97 95 91 Oximetry 06/08/20 06/08/20 06/08/20 13:04 13:09 13:13 Temperature Pulse Rate 80 80 77 Respiratory Rate Blood Pressure 152/86 Blood Pressure [Left] O2 Sat by Pulse 93 96 Oximetry 06/08/20 06/08/20 06/08/20 13:14 13:19 13:29 Temperature Pulse Rate 78 81 84 Respiratory Rate Blood Pressure Blood Pressure [Left] O2 Sat by Pulse 96 94 96 Oximetry 06/08/20 06/08/20 06/08/20 13:34 13:39 13:44 Temperature Pulse Rate 76 82 83 Respiratory Rate Blood Pressure Blood Pressure [Left] O2 Sat by Pulse 96 96 96 Oximetry 06/08/20 06/08/20 06/08/20 13:46 13:47 13:49 Temperature Pulse Rate 81 80 87 Respiratory Rate Blood Pressure 156/84 Blood Pressure [Left] O2 Sat by Pulse 91 95 Oximetry 06/08/20 06/08/20 06/08/20 13:54 13:59 14:04 Temperature Pulse Rate 83 76 84 Respiratory Rate Blood Pressure Blood Pressure [Left] O2 Sat by Pulse 96 96 96 Oximetry 06/08/20 06/08/20 06/08/20 14:09 14:13 14:14 Temperature Pulse Rate 77 81 79 Respiratory Rate Blood Pressure 175/91 Blood Pressure [Left] O2 Sat by Pulse 96 96 Oximetry 06/08/20 06/08/20 06/08/20 14:19 14:22 14:24 Temperature Pulse Rate 81 77 78 Respiratory Rate Blood Pressure 155/83 Blood Pressure [Left] O2 Sat by Pulse 96 94 96 Oximetry 06/08/20 06/08/20 06/08/20 14:25 14:29 14:30 Temperature 98.9 F Pulse Rate 79 75 78 Respiratory 18 Rate Blood Pressure 149/85 Blood Pressure 155/83 [Left] O2 Sat by Pulse 96 96 93 Oximetry 06/08/20 06/08/20 06/08/20 14:34 14:39 14:44 Temperature Pulse Rate 79 75 80 Respiratory Rate Blood Pressure 149/85 139/80 142/83 Blood Pressure [Left] O2 Sat by Pulse 96 96 96 Oximetry 06/08/20 06/08/20 06/08/20 14:49 14:50 14:54 Temperature Pulse Rate 79 77 75 Respiratory Rate Blood Pressure 161/88 Blood Pressure [Left] O2 Sat by Pulse 96 93 95 Oximetry 02/13/21 02/13/21 02/13/21 14:59 15:04 15:09 Temperature Pulse Rate 75 72 68 Respiratory Rate Blood Pressure Blood Pressure [Left] O2 Sat by Pulse 96 95 95 Oximetry 06/08/20 06/08/20 06/08/20 15:14 15:19 15:21 Temperature Pulse Rate 69 61 72 Respiratory Rate Blood Pressure 161/95 Blood Pressure [Left] O2 Sat by Pulse 96 96 Oximetry 06/08/20 06/08/20 06/08/20 15:24 15:29 15:34 Temperature Pulse Rate 79 71 78 Respiratory Rate Blood Pressure Blood Pressure [Left] O2 Sat by Pulse 96 96 95 Oximetry 06/08/20 06/08/20 06/08/20 15:39 15:44 15:49 Temperature Pulse Rate 75 70 80 Respiratory Rate Blood Pressure Blood Pressure [Left] O2 Sat by Pulse 95 95 96 Oximetry 06/08/20 06/08/20 06/08/20 15:50 15:54 15:59 Temperature Pulse Rate 71 71 69 Respiratory Rate Blood Pressure 162/94 Blood Pressure [Left] O2 Sat by Pulse 95 96 Oximetry 06/08/20 06/08/20 06/08/20 16:04 16:09 16:14 Temperature Pulse Rate 75 72 75 Respiratory Rate Blood Pressure Blood Pressure [Left] O2 Sat by Pulse 96 96 97 Oximetry 06/08/20 06/08/20 06/08/20 16:19 16:21 16:24 Temperature Pulse Rate 71 71 74 Respiratory Rate Blood Pressure 168/97 Blood Pressure [Left] O2 Sat by Pulse 94 94 95 Oximetry 06/08/20 06/08/20 06/08/20 16:29 16:34 16:39 Temperature Pulse Rate 69 72 75 Respiratory Rate Blood Pressure Blood Pressure [Left] O2 Sat by Pulse 95 95 96 Oximetry 06/08/20 06/08/20 06/08/20 16:44 16:49 16:50 Temperature Pulse Rate 78 74 70 Respiratory Rate Blood Pressure 173/99 Blood Pressure [Left] O2 Sat by Pulse 96 97 Oximetry 06/08/20 06/08/20 06/08/20 16:54 16:58 16:59 Temperature Pulse Rate 76 77 74 Respiratory Rate Blood Pressure Blood Pressure [Left] O2 Sat by Pulse 95 92 96 Oximetry 06/08/20 06/08/20 06/08/20 17:04 17:09 17:14 Temperature Pulse Rate 79 75 82 Respiratory Rate Blood Pressure Blood Pressure [Left] O2 Sat by Pulse 96 96 96 Oximetry 06/08/20 06/08/20 06/08/20 17:18 17:19 17:21 Temperature Pulse Rate 78 78 80 Respiratory Rate Blood Pressure 173/99 141/85 Blood Pressure [Left] O2 Sat by Pulse 96 Oximetry 06/08/20 06/08/20 06/08/20 17:24 17:28 17:34 Temperature Pulse Rate 83 81 87 Respiratory Rate Blood Pressure Blood Pressure [Left] O2 Sat by Pulse 96 96 96 Oximetry 06/08/20 06/08/20 06/08/20 17:39 17:44 17:47 Temperature Pulse Rate 91 H 96 H Respiratory Rate Blood Pressure Blood Pressure [Left] O2 Sat by Pulse 95 96 93 Oximetry 06/08/20 06/08/20 06/08/20 17:49 17:50 17:54 Temperature Pulse Rate 98 H 94 H 90 Respiratory Rate Blood Pressure 137/73 Blood Pressure [Left] O2 Sat by Pulse 96 95 Oximetry 06/08/20 06/08/20 06/08/20 17:59 18:04 18:09 Temperature Pulse Rate 96 H 99 H 94 H Respiratory Rate Blood Pressure Blood Pressure [Left] O2 Sat by Pulse 95 96 95 Oximetry 06/08/20 06/08/20 06/08/20 18:14 21:15 21:20 Temperature 97.8 F Pulse Rate 97 H 62 62 Respiratory 15 14 Rate Blood Pressure 113/73 115/71 Blood Pressure [Left] O2 Sat by Pulse 96 96 97 Oximetry 06/08/20 06/08/20 06/08/20 21:25 21:30 21:45 Temperature Pulse Rate 61 64 64 Respiratory 14 14 16 Rate Blood Pressure 109/70 112/66 111/71 Blood Pressure [Left] O2 Sat by Pulse 97 97 97 Oximetry 06/08/20 06/08/20 06/08/20 22:00 22:15 22:45 Temperature 97.5 F L Pulse Rate 64 60 66 Respiratory 13 14 Rate Blood Pressure 106/65 105/63 Blood Pressure [Left] O2 Sat by Pulse 97 97 97 Oximetry 06/08/20 06/08/20 06/08/20 22:47 22:48 22:50 Temperature Pulse Rate 63 66 66 Respiratory Rate Blood Pressure 116/74 116/74 Blood Pressure [Left] O2 Sat by Pulse 97 Oximetry - Labs CBC & Chem 7: 06/08/20 06:46 06/08/20 06:46 Labs: Abnormal lab results 06/08/20 06/08/20 06/08/20 Range/Units 05:45 06:46 06:46 WBC 15.5 H (4.5-11.0) K/mm3 RDW 13.1 L (13.2-15.2) % POC Glucose 58 L (70-105) mg/dL Uric Acid 9.9 H (3.5-7.6) mg/dL AST 237 H (5-40) units/L ALT 321 H (7-56) units/L Lactate Dehydrogenase 469 H (91-180) units/L Regional Anesthesia Block - Regional Anesthesia Block Start Time: 20:59 Stop Time: 21:04 Performed By:: ABIGAIL KINCAID Procedure: Patient consented for TAP block for post surgical pain management. Patient identified, monitors placed, and time out performed. TAP identified bilaterally via ultrasound. Skin prepped bilaterally with [chlorhexidine] and [22g stimuplex] needle advanced to the TAP. [Marcaine 0.22% 35ml] injected under ultrasound guidance on the [left] side. [Marcaine 0.22% 35ml] injected under ultrasound guidance on the [right] side. Negative aspiration every 5mL, No change in heart rate or rhythm. Patient tolerated the procedure well. No apparent complications seen.
--- NOTE | 2020-06-08 22:54 | Post Anesthesia Evaluation ---
- Post Anesthesia Evaluation Patient Participated: Yes Airway Patent: Yes Stable Respiratory Function: Yes Nausea/Vomiting: No Temp > 96.8F: Yes Pain Manageable: Yes Adequeate Hydration: Yes Anesthesia Complications: No Block Receding Appropriately: Yes Patient on Ventilator: No
[2020-06-09] MEDS ORDERED: DEXTROSE 50% IN WATER (25GM) 50 ML SYRINGE IV PRN (09:00)
[2020-06-09] MEDS ORDERED: HYDROcodone/ACETAMINOPHEN 5-325 MG TAB PO PRN ×2 (09:00→12:31)
[2020-06-09] MEDS ORDERED: WITCH HAZEL/ GLYCERIN PAD TP PRN (09:00)
[2020-06-09] MEDS ORDERED: KETOROLAC 30 MG/1 ML INJ IV PRN (09:30)
[2020-06-09] MEDS ORDERED: INSULIN REGULAR, HUMAN 100 UNITS/1 ML SUB-Q SCH (09:30)
[2020-06-09] MEDS ORDERED: OXYTOCIN DRIP 30 UNITS/500 ML BAG IV SCH (09:30)
[2020-06-09] MEDS ORDERED: ONDANSETRON 4 MG/2 ML INJ IV PRN (09:30)
[2020-06-09] MEDS ORDERED: NALOXONE 0.4 MG/1 ML INJ IV PRN (09:30)
[2020-06-09] MEDS ORDERED: LANOLIN/ZINC/DIMETHICONE (LANSINOH) 7 GM TP PRN (09:30)
[2020-06-09] MEDS ORDERED: MAGNESIUM SULFATE 40GM/1000ML 40 GM/1,000 ML BAG IV SCH (09:30)
[2020-06-09] MEDS ORDERED: SIMETHICONE 80 MG CHEW TAB PO PRN (09:30)
[2020-06-09] MEDS ORDERED: ceFAZolin/NS 1 GM/50 ML 1 GM/50 ML BAG IV SCH (10:00)
[2020-06-09] MEDS: IBUPROFEN 800 MG TAB PO PRN ×2 (10:39→21:30)
[2020-06-09] MEDS ORDERED: hydrALAZINE 20 MG/1 ML INJ ONE (11:27)
[2020-06-09] MEDS: hydrALAZINE 20 MG/1 ML INJ IV PRN (11:34)
[2020-06-09] MEDS ORDERED: hydrALAZINE 20 MG/1 ML INJ IV ONE (11:49)
[2020-06-09] MEDS ORDERED: LACTATED RINGERS 1,000 ML ONE (11:52)
[2020-06-09 12:30] LABS: Basophils % (Auto) 0.1 % (0.0-1.8); Eosinophils % (Auto) 0.1 % (0.0-4.3); Hematocrit 32.5 % (30.3-42.9); Hemoglobin 10.8 gm/dl (10.1-14.3); Lymphocytes # (Auto) 2.4 K/mm3 (1.2-5.4); Lymphocytes % (Auto) 13.1 % (13.4-35.0); Mean Corpuscular HGB Conc 33 % (30-34); Mean Corpuscular Volume 91 fl (79-97); Monocytes # (Auto) 1.1 K/mm3 (0.0-0.8); Monocytes % (Auto) 6.1 % (0.0-7.3); Platelet Count 152 K/mm3 (140-440); Red Blood Count 3.58 M/mm3 (3.65-5.03); Red Cell Distribution Width 13.4 % (13.2-15.2)
--- NOTE | 2020-06-09 12:36 | Progress Note ---
Assessment and Plan - Patient Problems (1) Severe preeclampsia Current Visit: Yes Status: Acute Qualifiers: Trimester: third trimester Qualified Code(s): O14.13 - Severe pre- eclampsia, third trimester Plan to address problem: Patient with some elevated blood pressures this morning we will give hydralazine IV now and increase her labetalol dosage. Patient without any symptoms of preeclampsia. Repeat labs are pending. We will continue magnesium sulfate for 24 hours continue to monitor blood pressure closely and also watch for signs or symptoms of worsening preeclampsia (2) delivery delivered Current Visit: Yes Status: Acute Plan to address problem: Postoperatively doing well (3) Gestational diabetes mellitus (GDM) Onset Date: ~06/06/20 Current Visit: Yes Status: Acute Qualifiers: Gestational diabetes mellitus control: diet-controlled Trimester: third trimester Qualified Code(s): O24.410 - Gestational diabetes mellitus in , diet controlled Plan to address problem: We will continue sliding scale insulin for now reevaluate when patient's start o n regular diet Subjective - Subjective Principal diagnosis: IUP @ 33w4d; severe pre-e; GDM diet controlled Interval history: Patient with some elevated blood pressures this morning we will give hydralazine IV now and increase her labetalol dosage Patient reports: appetite normal, pain well controlled, other (Patient denies any headache blurred vision or upper abdominal pain), no flatus, no bowel movement, no nauseated [place]: in NICU Objective - Vital Signs Latest vital signs: Vital Signs Temp Pulse Resp BP BP Pulse Ox 06/09/20 12:30 69 98 06/09/20 12:27 68 119/74 06/09/20 12:25 65 97 06/09/20 12:20 72 96 06/09/20 12:15 78 97 06/09/20 12:12 18 06/09/20 12:10 70 97 06/09/20 12:05 76 96 06/09/20 12:00 77 97 06/09/20 11:57 77 131/76 06/09/20 11:55 72 96 06/09/20 11:50 77 98 06/09/20 11:45 77 97 06/09/20 11:40 72 97 06/09/20 11:35 66 97 06/09/20 11:30 63 97 06/09/20 11:27 70 171/85 06/09/20 11:25 63 97 06/09/20 11:20 62 97 06/09/20 11:15 67 98 06/09/20 11:10 62 99 06/09/20 11:05 61 99 06/09/20 11:00 73 98 06/09/20 10:57 68 181/105 06/09/20 10:55 66 98 06/09/20 10:50 69 98 06/09/20 10:45 73 98 06/09/20 10:40 83 99 06/09/20 10:37 62 161/94 06/09/20 10:35 69 161/95 98 06/09/20 10:30 60 98 06/09/20 10:27 60 162/94 06/09/20 10:25 62 99 06/09/20 10:20 59 L 100 06/09/20 10:15 65 99 06/09/20 10:10 68 156/94 99 06/09/20 10:05 73 99 06/09/20 10:00 63 99 06/09/20 09:57 66 156/94 06/09/20 09:55 61 99 06/09/20 09:50 57 L 99 06/09/20 09:45 54 L 99 06/09/20 09:40 54 L 98 06/09/20 09:35 57 L 98 06/09/20 09:30 55 L 98 06/09/20 09:28 60 154/91 06/09/20 09:25 53 L 99 06/09/20 09:20 57 L 98 06/09/20 09:15 56 L 98 06/09/20 09:10 62 97 06/09/20 09:05 66 98 06/09/20 09:00 63 98 06/09/20 08:58 62 152/95 06/09/20 08:55 71 97 06/09/20 08:50 64 98 06/09/20 08:45 68 97 06/09/20 08:40 65 99 06/09/20 08:35 65 99 06/09/20 08:30 64 99 06/09/20 08:27 61 137/88 06/09/20 08:25 61 98 06/09/20 08:20 64 99 06/09/20 08:15 64 98 06/09/20 08:10 67 98 06/09/20 08:05 64 98 06/09/20 08:04 98.3 F 64 18 06/09/20 08:00 64 98 06/09/20 07:57 59 L 146/94 06/09/20 07:55 67 97 06/09/20 07:50 61 152/90 98 06/09/20 07:45 54 L 97 06/09/20 07:40 55 L 98 06/09/20 07:35 53 L 98 06/09/20 07:30 53 L 98 06/09/20 07:27 56 L 137/80 06/09/20 07:25 53 L 97 06/09/20 07:20 54 L 97 06/09/20 07:15 53 L 97 06/09/20 07:10 57 L 97 06/09/20 07:05 58 L 97 06/09/20 07:00 60 97 06/09/20 06:57 57 L 141/86 06/09/20 06:55 65 98 06/09/20 06:50 69 97 06/09/20 06:45 65 98 06/09/20 06:40 64 97 06/09/20 06:39 98.4 F 62 16 143/85 98 06/09/20 06:35 60 98 06/09/20 06:32 64 143/85 06/09/20 06:30 53 L 97 06/09/20 06:27 58 L 125/79 06/09/20 06:25 54 L 97 06/09/20 06:20 57 L 97 06/09/20 06:15 54 L 97 06/09/20 06:10 59 L 97 06/09/20 06:05 65 98 06/09/20 06:00 66 98 06/09/20 05:57 60 134/86 06/09/20 05:55 65 97 06/09/20 05:50 65 97 06/09/20 05:45 65 98 06/09/20 05:40 64 98 06/09/20 05:35 55 L 97 06/09/20 05:30 54 L 97 06/09/20 05:27 55 L 123/78 06/09/20 05:25 65 97 06/09/20 05:20 56 L 96 06/09/20 05:15 56 L 96 06/09/20 05:10 55 L 96 06/09/20 05:05 58 L 97 06/09/20 05:00 57 L 96 06/09/20 04:57 54 L 124/75 06/09/20 04:55 55 L 97 06/09/20 04:50 55 L 97 06/09/20 04:45 54 L 97 06/09/20 04:40 56 L 96 06/09/20 04:35 61 96 06/09/20 04:30 66 97 06/09/20 04:27 67 116/73 06/09/20 04:25 56 L 96 06/09/20 04:20 55 L 96 06/09/20 04:15 55 L 97 06/09/20 04:10 56 L 96 06/09/20 04:05 56 L 96 06/09/20 04:00 57 L 97 06/09/20 03:57 58 L 127/75 06/09/20 03:55 97.4 F L 70 16 136/75 97 06/09/20 03:50 61 96 06/09/20 03:45 74 97 06/09/20 03:42 68 136/75 06/09/20 03:40 74 97 06/09/20 03:35 54 L 97 06/09/20 03:30 54 L 97 06/09/20 03:27 57 L 117/74 06/09/20 03:25 55 L 97 06/09/20 03:20 55 L 97 06/09/20 03:15 57 L 97 06/09/20 03:10 59 L 96 06/09/20 03:05 60 96 06/09/20 03:00 63 97 06/09/20 02:57 61 129/75 06/09/20 02:55 76 97 06/09/20 02:50 58 L 96 06/09/20 02:45 60 96 06/09/20 02:40 63 97 06/09/20 02:35 59 L 96 06/09/20 02:30 58 L 96 06/09/20 02:27 61 126/75 06/09/20 02:25 59 L 96 06/09/20 02:20 60 97 06/09/20 02:15 61 96 06/09/20 02:10 60 96 06/09/20 02:05 70 98 06/09/20 02:00 59 L 96 06/09/20 01:57 62 117/72 06/09/20 01:55 60 96 06/09/20 01:50 59 L 96 06/09/20 01:45 58 L 96 06/09/20 01:40 59 L 96 06/09/20 01:35 58 L 96 06/09/20 01:30 58 L 96 06/09/20 01:27 59 L 117/64 06/09/20 01:25 59 L 96 06/09/20 01:20 64 95 06/09/20 01:15 69 96 06/09/20 01:10 60 96 06/09/20 01:05 63 95 06/09/20 01:03 64 94 06/09/20 01:00 63 96 06/09/20 00:57 64 116/72 06/09/20 00:55 63 95 06/09/20 00:50 61 95 06/09/20 00:45 62 96 06/09/20 00:40 62 96 06/09/20 00:35 60 96 06/09/20 00:30 60 96 06/09/20 00:27 63 122/72 06/09/20 00:25 63 96 06/09/20 00:20 59 L 96 06/09/20 00:15 64 96 06/09/20 00:10 72 97 06/09/20 00:05 61 97 06/09/20 00:00 66 96 06/08/20 23:57 65 125/75 06/08/20 23:55 66 97 06/08/20 23:50 65 96 06/08/20 23:45 77 96 06/08/20 23:40 65 97 06/08/20 23:35 59 L 96 06/08/20 23:30 61 96 06/08/20 23:27 64 124/80 06/08/20 23:25 59 L 96 06/08/20 23:20 58 L 97 06/08/20 23:15 59 L 97 06/08/20 23:10 60 97 06/08/20 23:05 64 97 06/08/20 23:00 63 97 06/08/20 22:55 71 97 06/08/20 22:50 66 97 06/08/20 22:48 66 116/74 06/08/20 22:47 63 116/74 06/08/20 22:45 66 97 06/08/20 22:15 97.5 F L 60 14 105/63 97 06/08/20 22:00 64 13 106/65 97 06/08/20 21:45 64 16 111/71 97 06/08/20 21:30 64 14 112/66 97 06/08/20 21:25 61 14 109/70 97 06/08/20 21:20 62 14 115/71 97 06/08/20 21:15 97.8 F 62 15 113/73 96 06/08/20 18:14 97 H 96 06/08/20 18:09 94 H 95 06/08/20 18:04 99 H 96 06/08/20 17:59 96 H 95 06/08/20 17:54 90 95 06/08/20 17:50 94 H 137/73 06/08/20 17:49 98 H 96 06/08/20 17:47 93 06/08/20 17:44 96 H 96 06/08/20 17:39 91 H 95 06/08/20 17:34 87 96 06/08/20 17:28 81 96 06/08/20 17:24 83 96 06/08/20 17:21 80 141/85 06/08/20 17:19 78 96 06/08/20 17:18 78 173/99 06/08/20 17:14 82 96 06/08/20 17:09 75 96 06/08/20 17:04 79 96 06/08/20 16:59 74 96 06/08/20 16:58 77 92 06/08/20 16:54 76 95 06/08/20 16:50 70 173/99 06/08/20 16:49 74 97 06/08/20 16:44 78 96 06/08/20 16:39 75 96 06/08/20 16:34 72 95 06/08/20 16:29 69 95 06/08/20 16:24 74 95 06/08/20 16:21 71 168/97 94 06/08/20 16:19 71 94 06/08/20 16:14 75 97 06/08/20 16:09 72 96 06/08/20 16:04 75 96 06/08/20 15:59 69 96 06/08/20 15:54 71 95 06/08/20 15:50 71 162/94 06/08/20 15:49 80 96 06/08/20 15:44 70 95 06/08/20 15:39 75 95 06/08/20 15:34 78 95 06/08/20 15:29 71 96 06/08/20 15:24 79 96 06/08/20 15:21 72 161/95 06/08/20 15:19 61 96 06/08/20 15:14 69 96 06/08/20 15:09 68 95 06/08/20 15:04 72 95 06/08/20 14:59 75 96 06/08/20 14:54 75 95 06/08/20 14:50 77 161/88 93 06/08/20 14:49 79 96 06/08/20 14:44 80 142/83 96 06/08/20 14:39 75 139/80 96 06/08/20 14:34 79 149/85 96 06/08/20 14:30 78 149/85 93 06/08/20 14:29 75 96 06/08/20 14:25 98.9 F 79 18 155/83 96 06/08/20 14:24 78 96 06/08/20 14:22 77 155/83 94 06/08/20 14:19 81 96 06/08/20 14:14 79 96 06/08/20 14:13 81 175/91 06/08/20 14:09 77 96 06/08/20 14:04 84 96 06/08/20 13:59 76 96 06/08/20 13:54 83 96 06/08/20 13:49 87 95 06/08/20 13:47 80 156/84 06/08/20 13:46 81 91 06/08/20 13:44 83 96 06/08/20 13:39 82 96 06/08/20 13:34 76 96 06/08/20 13:29 84 96 06/08/20 13:19 81 94 06/08/20 13:14 78 96 06/08/20 13:13 77 152/86 06/08/20 13:09 80 96 06/08/20 13:04 80 93 06/08/20 13:03 82 91 06/08/20 12:59 85 95 06/08/20 12:54 81 97 06/08/20 12:49 89 96 06/08/20 12:44 90 96 0213/21 12:42 79 161/84 06/08/20 12:41 80 92 06/08/20 12:39 84 96 06/08/20 12:34 83 96 Intake and Output 06/08/20 06/09/20 06/09/20 22:59 06:59 14:59 Intake Total 1435.867 Output Total 820 601 1186 Balance 1235.867 -475 -1700 Intake: IV 1435.867 PITOCin/NS 30 UNIT/500ML 35.867 30,000 milliunits In 500 ml @ 4 MILLIUNITS/MIN 4 mls/hr IV DIRECT ONE Rx#:[id number] Output: Urine 319 131 5261 Indwelling Catheter 75 475 1700 Other: Total, Output Amount 75 100 1700 Estimated Blood Loss 900 - Exam Breasts: Present: deferred Cardiovascular: Present: Regular rate Lungs: Present: Normal air movement Abdomen: Present: normal appearance, soft, other (Intact incision with no evidence of infection) Uterus: Present: firm, fundal height below umbilicus Extremities: Present: edema Incision: Present: normal, dry, intact - Labs Labs: Abnormal lab results 06/09/20 06/09/20 06/09/20 Range/Units 02:06 06:40 10:06 WBC (4.5-11.0) K/mm3 RBC (3.65-5.03) M/mm3 Lymph % (Auto) (13.4-35.0) % [place] # (Auto) (0.0-0.8) K/mm3 Seg Neutrophils % (40.0-70.0) % Seg Neutrophils # (1.8-7.7) K/mm3 POC Glucose 67 L (70-105) mg/dL Magnesium 6.70 H 7.50 H (1.7-2.3) mg/dL 06/09/20 Range/Units 11:50 WBC 18.5 H (4.5-11.0) K/mm3 RBC 3.58 L (3.65-5.03) M/mm3 Lymph % (Auto) 13.1 L (13.4-35.0) % [place] # (Auto) 1.1 H (0.0-0.8) K/mm3 Seg Neutrophils % 80.6 H (40.0-70.0) % Seg Neutrophils # 14.9 H (1.8-7.7) K/mm3 POC Glucose (70-105) mg/dL Magnesium (1.7-2.3) mg/dL
[2020-06-09 12:47] LABS: Alanine Aminotransferase 262 units/L (7-56); BUN/Creatinine Ratio 27; Blood Urea Nitrogen 16 mg/dL (7-17); Hemolysis Index 0
[2020-06-09] MEDS ORDERED: MAGNESIUM HYDROXIDE (MOM) ORAL LIQD UDC PO PRN (22:00)
[2020-06-10 07:44] LABS: Hematocrit 31.3 % (30.3-42.9); Hemoglobin 10.3 gm/dl (10.1-14.3); Mean Corpuscular HGB Conc 33 % (30-34); Mean Corpuscular Volume 91 fl (79-97); Platelet Count 172 K/mm3 (140-440); Red Blood Count 3.44 M/mm3 (3.65-5.03); Red Cell Distribution Width 13.9 % (13.2-15.2)
[2020-06-10 07:58] LABS: Alanine Aminotransferase 158 units/L (7-56)
[2020-06-10] MEDS: FERROUS SULFATE 325 MG TAB PO SCH (09:55)
[2020-06-10] MEDS: PRENATAL VIT27-FE FUMARATE-FOLIC ACID VIT TAB PO SCH (09:55)
--- NOTE | 2020-06-10 13:23 | Event Note ---
Date: 06/10/20 (Pt not in room.) Went to go and speak with patient and she was not in the room. Will come and see her this early evening. Reviewed blood pressures in the chart. Blood pressure ranges have been 150-160's/80-90's. Consulted with Dr. Chand. Will add Procardia 30 XL and continue to observe blood pressures.
[2020-06-10] MEDS: NIFEdipine XL 30 MG TAB PO SCH (17:17)
--- NOTE | 2020-06-10 17:57 | Progress Note ---
Assessment and Plan A: 25 y.o. s/p primary d/t pre eclampsia with severe features, POD #2. P:Continue with care. Redraw CMP in the AM. Add Procardia XL 30mg PO. Advance diet as tolerated. Encourage ambulation. Anticipate discharge home. Subjective - Subjective Date of service: 06/10/20 (Pt doing well.) Principal diagnosis: s/p primary d/t severe pre e, POD #1 Patient reports: appetite normal, voiding normally, pain well controlled, flatus, ambulating normally : doing well Objective - Vital Signs Latest vital signs: Vital Signs Temp Pulse Resp BP BP Pulse Ox 06/10/20 13:01 98.1 F 83 20 150/87 97 06/10/20 09:56 80 154/90 06/10/20 08:23 98.2 F 70 20 157/90 97 06/10/20 04:29 98.0 F 64 20 143/70 97 06/10/20 00:30 98.1 F 82 20 134/76 95 06/09/20 22:27 75 157/83 06/09/20 22:16 82 166/88 06/09/20 22:15 82 166/88 06/09/20 21:30 18 06/09/20 21:14 76 L 06/09/20 21:10 72 98 06/09/20 21:05 80 98 06/09/20 21:00 78 99 06/09/20 20:57 77 160/86 06/09/20 20:55 76 97 06/09/20 20:50 80 99 06/09/20 20:45 76 98 06/09/20 20:40 74 99 06/09/20 20:35 74 99 06/09/20 20:30 78 99 06/09/20 20:27 78 157/89 06/09/20 20:25 75 99 06/09/20 20:20 78 99 06/09/20 20:15 73 99 06/09/20 20:10 84 96 06/09/20 20:05 64 97 06/09/20 20:00 67 98 06/09/20 19:57 82 140/87 06/09/20 19:55 66 97 06/09/20 19:50 71 97 06/09/20 19:45 69 98 06/09/20 19:40 71 99 06/09/20 19:35 75 99 06/09/20 19:30 72 99 06/09/20 19:27 73 150/89 06/09/20 19:25 72 98 06/09/20 19:20 75 99 06/09/20 19:15 72 98 06/09/20 19:10 78 99 06/09/20 19:05 78 97 06/09/20 19:00 76 99 06/09/20 18:57 80 152/87 06/09/20 18:55 76 98 06/09/20 18:50 87 98 06/09/20 18:45 79 97 06/09/20 18:40 79 99 06/09/20 18:35 85 98 06/09/20 18:30 81 98 06/09/20 18:27 80 145/78 06/09/20 18:25 81 98 06/09/20 18:20 81 98 06/09/20 18:15 80 98 06/09/20 18:10 84 98 06/09/20 18:05 78 98 06/09/20 18:00 87 97 Intake and Output 06/10/20 06/10/20 06/10/20 06:59 14:59 22:59 Intake Total 600 Output Total 700 Balance -700 600 Intake: Oral 600 Output: Urine 700 Void 700 Other: Total, Intake Amount 240 Total, Output Amount 700 # Voids Void 1 - Exam Narrative Exam: Pt denies ESCOBAR, blurred vision, spots before her eyes, chest pain, shortness of breath, and upper abdominal pain. Discussed that if these symptoms occur, to tell the RN immediately. Pt verbalized understanding. Blood pressure ranges have been 150-160/80-90's. LFT's are trending down. Also of note, pt with a low calcium level. Consulted with Dr. Chand. Will add Procardia XL 30 mg PO and redraw labs in the AM. Explained plan of care to patient regarding watching her blood pressures after new medication added. Pt verbalized understanding. Breasts: Present: deferred Cardiovascular: Present: Regular rate Lungs: Present: Normal air movement Abdomen: Present: normal appearance, soft Uterus: Present: normal, firm Incision: Present: normal, dry, intact (No s/sx of infection. No drainage noted. ) - Labs Labs: Abnormal lab results 06/09/20 06/10/20 06/10/20 Range/Units 18:18 07:24 07:24 WBC 15.5 H (4.5-11.0) K/mm3 RBC 3.44 L (3.65-5.03) M/mm3 Magnesium 6.00 H (1.7-2.3) mg/dL AST 57 H (5-40) units/L ALT 158 H (7-56) units/L
[2020-06-10] MEDS: IBUPROFEN 800 MG TAB PO PRN (19:25)
[2020-06-11] MEDS: IBUPROFEN 800 MG TAB PO PRN ×2 (05:42→16:57)
[2020-06-11 06:50] LABS: Alanine Aminotransferase 107 units/L (7-56); Albumin 2.8 g/dL (3.9-5); Blood Urea Nitrogen 9 mg/dL (7-17); Calcium 7.6 mg/dL (8.4-10.2); Hemolysis Index 0
[2020-06-11 06:52] LABS: BUN/Creatinine Ratio 15
--- NOTE | 2020-06-11 08:47 | Progress Note ---
Assessment and Plan pt pumping breast milk for infant in NICU, pt and s/o in good spirits and plan to visit baby shortly for a feeding. Pt denies ESCOBAR, visual changes or epigastric pain. incision D&I. b/p's 130-140's/60-70's. - Patient Problems (1) delivery delivered Current Visit: Yes Status: Acute Plan to address problem: continue postop pathway advance diet and activity as tolerated (2) Severe preeclampsia Current Visit: Yes Status: Acute Qualifiers: Trimester: third trimester Qualified Code(s): O14.13 - Severe pre- eclampsia, third trimester Plan to address problem: Continue to monitor pt and VS continue labetalol 300mg BID Subjective - Subjective Date of service: 06/11/20 Principal diagnosis: s/p primary d/t severe pre e, POD #2 Patient reports: appetite normal, voiding normally, pain well controlled, flatus, ambulating normally, no dizzy ambulation, no nauseated [place]: in NICU (pumping breast milk) Objective - Vital Signs Latest vital signs: Vital Signs Temp Pulse Resp BP Pulse Ox 06/11/20 08:17 97.4 F L 71 18 168/89 96 06/11/20 06:23 18 06/11/20 05:42 18 06/11/20 04:57 97.9 F 89 18 143/77 95 06/11/20 00:38 98.3 F 87 20 131/69 96 06/10/20 21:23 80 18 145/72 95 06/10/20 20:44 98.6 F 82 18 130/71 95 06/10/20 20:25 18 06/10/20 19:26 83 18 173/92 97 06/10/20 19:25 84 18 173/92 06/10/20 19:03 99.2 F 85 20 174/91 96 06/10/20 13:01 98.1 F 83 20 150/87 97 06/10/20 09:56 80 154/90 Intake and Output 06/10/20 06/11/20 06/11/20 23:59 07:59 15:59 Intake Total 720 240 Balance 720 240 Intake: Oral 240 Intake, Free Water 480 240 Other: Total, Intake Amount 240 # Voids Void 1 1 - Exam Breasts: Present: normal Cardiovascular: Present: Regular rate Lungs: Present: Clear to auscultation, Normal air movement Abdomen: Present: normal appearance, soft Vulva: both: normal Uterus: Present: normal, firm, fundal height at umbilicus Extremities: Present: normal Deep Tendon Reflex Grade: Normal +2 Incision: Present: normal, dry, intact - Labs Labs: Abnormal lab results 06/11/20 Range/Units 05:30 Chloride 108.1 H (98-107) mmol/L Calcium 7.6 L D (8.4-10.2) mg/dL AST 41 H (5-40) units/L ALT 107 H (7-56) units/L Total Protein 5.4 L (6.3-8.2) g/dL Albumin 2.8 L (3.9-5) g/dL
[2020-06-11] MEDS: PRENATAL VIT27-FE FUMARATE-FOLIC ACID VIT TAB PO SCH (10:38)
[2020-06-11] MEDS: FERROUS SULFATE 325 MG TAB PO SCH (10:38)
[2020-06-11] MEDS: NIFEdipine XL 30 MG TAB PO SCH ×2 (10:38→22:38)
--- NOTE | 2020-06-11 16:36 | Event Note ---
Date: 06/11/20 received call from RN that pt's last several blood pressures were elevated 140-160/80-90's. reviewed with Dr. Geronimo, will increase procardia dose from Qday to BID. nurse made aware, order in chart. Will continue to monitor closely.
[2020-06-12] MEDS: IBUPROFEN 800 MG TAB PO PRN (06:19)
--- NOTE | 2020-06-12 06:43 | Discharge Summary ---
Providers - Providers Date of Admission: 06/04/20 17:22 Date of discharge: 06/12/20 (pt desires d/c) Attending physician: MICHAEL PADILLA 06/09/20 08:57 Consult to [facility] [CONS] Routine Reason For Exam: Primary care physician: MICHAEL PADILLA Hospitalization Reason for admission: IUP - , other (Admited 06-04-20 with elevated BP,GDM progressed to Severe PreE and HEELP) Delivery: Procedure: primary low transverse Episiotomy: none Laceration: none Incision: normal, dry, intact Other procedures: none complications: none Discharge diagnosis: delivery [place] baby: male Hospital course: Admission for elevated BP in 3rd trimester progressed to severe PreE and then HELLP syndrome decision to deliver Pt requested primary section Uncomplicated. NB stable in NICU Pt OOB pumping States she is anxious to go home. Stressed that she must rest. Pt has a home BP monitor Pt will call with any BP 160/100, any ESCOBAR, blurred vision, chest pain. She is aware she will have antihypertensives to take as prescribed. H&H 02/23 No s/sx of anemia. Doing well s/p c/s. P: d/c home today with instructions RTO 1 weeks for postop and BP check. All questions addressed. Condition at discharge: Good Disposition: [id number] TO HOME OR SELFCARE - Discharge Diagnoses (1) Gestational diabetes mellitus (GDM) Status: Acute Qualifiers: Gestational diabetes mellitus control: diet-controlled Trimester: third trimester Qualified Code(s): O24.410 - Gestational diabetes mellitus in , diet controlled Comment: 2hr GTT @ 6 weeks PP (2) Pre-eclampsia, severe, third trimester Status: Acute Comment: Continue antihypertensives RTO 1 week BP check. (3) delivery delivered Status: Acute Comment: RTO 1 week postop visit Plan - Discharge Medications Prescriptions: Lidocain2.5%/Prilocai2.5% [Emla] 5 gm TP ONCE #1 tube Lidocain2.5%/Prilocai2.5% [Emla] 1 applic TP ONCE #1 tube Ferrous Sulfate [Feosol 325 MG tab] 325 mg PO BID #60 tablet Ferrous Sulfate [Feosol 325 MG tab] 325 mg PO BID #60 tablet labetaloL [Labetalol 200mg TAB] 200 mg PO BID #60 tablet labetaloL [Labetalol 200mg TAB] 200 mg PO BID #60 tablet Labetalol HCl [Labetalol 300mg TAB] 300 mg PO BID #60 tablet Ibuprofen [Motrin 800 MG tab] 800 mg PO Q6H PRN #30 tablet PRN Reason: Pain Ibuprofen [Motrin] 800 mg PO Q8HR PRN #30 tablet PRN Reason: Pain, Moderate (4-6) oxyCODONE /ACETAMINOPHEN [Percocet 5/325 mg] 1 - 2 tab PO Q6HR PRN #20 tablet PRN Reason: Pain NIFEdipine XL [Procardia Xl] 30 mg PO QDAY #30 tablet NIFEdipine XL [Procardia Xl] 30 mg PO Q12HR #60 tab - Provider Discharge Summary Activity: routine, no sex for 6 weeks, no heavy lifting 4 weeks, no strenuous exercise Diet: routine Instructions: routine Additional instructions: [] Smoking cessation referral if applicable(refer to patient education folder for contact #) [] Refer to [facility] Booklet Call your doctor immediately for: * Fever > 100.5 * Heavy vaginal bleeding ( >1 pad per hour) * Severe persistent headache * Shortness of breath * Reddened, hot, painful area to leg or breast * Drainage or odor from incision. * Keep incision clean and dry at all times and follow doctor's instructions regarding bathing/showering - Follow up plan Follow up: MICHAEL PADILLA MD [Primary Care Provider] - 7 Days (Congratulations! Please call to schedule your postoperative visit and your blood pressure check in 1 week. Take your blood pressure at home call with BP 160/100, any headache, blured vision, chest pain. Take medications as precribed. Call with any concerns.)
--- NOTE | 2020-06-12 09:17 | Event Note ---
Date: 06/12/20 Diastolic bps still in the 100s this am. pt procardia was just increased yesterday evening. Will monitor today to see if effective and re-evaluate this pm if she is ready for d/c home. Will hold [facility] for now.
[2020-06-12] MEDS: FERROUS SULFATE 325 MG TAB PO SCH (11:04)
[2020-06-12] MEDS: PRENATAL VIT27-FE FUMARATE-FOLIC ACID VIT TAB PO SCH (11:04)
[2020-06-12] MEDS: NIFEdipine XL 30 MG TAB PO SCH (11:05)
[2020-06-12 16:34] VITALS: BP 154/87
== END 2020-06-12 16:58 | disposition home or self-care (01) | DRG 765 ==
LOC: TRG 15:29 → APU 16:09 → LD 17:22 → TRG 17:22 → LD 06-08 12:34 → OB 06-09 23:12
PROVIDERS: ADMIT Obstetrics & Gynecology; ATTEND Obstetrics & Gynecology
PROC: 10D00Z1 Extraction of Products of Conception, Low, Open Approach (ICD-10-PCS; principal; 2020-06-08)
PROC: 3E0R3BZ Introduction of Anesthetic Agent into Spinal Canal, Percutaneous Approach (ICD-10-PCS; 2020-06-08)
PROC: 3E0T3BZ Introduction of Anesthetic Agent into Peripheral Nerves and Plexi, Percutaneous Approach (ICD-10-PCS; 2020-06-08)
DX: O24.420 Gestational diabetes mellitus in childbirth, diet controlled (principal); O60.14X0 Preterm labor third trimester with preterm delivery third trimester, not applicable or unspecified; O24.410 Gestational diabetes mellitus in pregnancy, diet controlled; O14.14 Severe pre-eclampsia complicating childbirth; Z3A.33 33 weeks gestation of pregnancy; Z37.0 Single live birth
CPT/HCPCS: 36415; 76815; 76816; 76819; 80048; 80053; 80307; 81001; 82310; 82565; 82570; 82575; 82962; 83615; 83735; 84156; 84450; 84460; 84550; 85025; 85027; 86592; 86850; 86900; 86901; 88307; G0378; J0360; J0690; J0702; J1100; J1885; J2274; J2370; J2405; J2590; J2765; J3475; J7040; J7120; U0003